=== PATIENT | male | born 1955 | race African-American/Black ===

== ENCOUNTER 2017-09-03 11:06 | Inpatient (IN) | payer OTHER ==
[2017-09-03 14:46] VITALS: BMI 24.3
--- NOTE | 2017-09-03 15:27 | HP ---
Admission [facility] Chief Complaint: I want to stop using crack . Allergies/Adverse Reactions: Allergies Allergy/AdvReac Type Severity Reaction Status Date / Time No Known Allergies Allergy Verified 09/03/17 14:55 History of Present Illness: h/o crack use daily needs help. Seeking rehab. Exam Limitations: No Limitations - Ebola screening Have you traveled outside of the country in the last 21 days: No Have you had contact with anyone from an Ebola affected area: No Have you been sick,other than usual withdrawal symptoms: No Do you have a fever: No - Review of Systems Constitutional: Malaise EENT: reports: No Symptoms Reported Respiratory: reports: No Symptoms reported Cardiac: reports: No Symptoms Reported GI: reports: No Symptoms Reported : reports: No Symptoms Reported, Other (hesitancy) Integumentary: reports: No Symptoms Reported, Dryness Neuro: reports: No Symptoms reported, Dizziness Endocrine: reports: Increased Hunger, Increased Thirst, Increased Urine Hematology: reports: No Symptoms Reported Psychiatric: reports: Orientated x3, Agitated, Anxious, Depressed Other Systems: Reviewed and Negative Patient History - Patient Medical History Hx Anemia: No Hx Asthma: No Hx Chronic Obstructive Pulmonary Disease (COPD): No Hx Cancer: No Hx Cardiac Disorders: No Hx Congestive Heart Failure: No Hx Hypertension: Yes Hx Hypercholesterolemia: No Hx Pacemaker: No HX Cerebrovascular Accident: No Hx Seizures: No Hx Dementia: No Hx Diabetes: No Hx Gastrointestinal Disorders: No Hx Liver Disease: No Hx Genitourinary Disorders: No Hx Sexually Transmitted Disorders: No Hx Renal Disease (ESRD): No Hx Thyroid Disease: No Hx Human Immunodeficiency Virus (HIV): No Hx Hepatitis C: Yes (1997) Hx Depression: Yes Hx Suicide Attempt: No Hx Bipolar Disorder: Yes Hx Schizophrenia: No - Patient Surgical History Past Surgical History: Yes Hx Neurologic Surgery: No Hx Cataract Extraction: No Hx Cardiac Surgery: No Hx Lung Surgery: No Hx Breast Surgery: No Hx Breast Biopsy: No Hx Abdominal Surgery: No Hx Appendectomy: No Hx Cholecystectomy: No Hx Genitourinary Surgery: No Hx Section: No Hx Orthopedic Surgery: No Other Surgical History: right inguinal hernia repai in 2009 Anesthesia Reaction: No - PPD History Date: 01/07/16 - Reproductive History Patient is a Female of Child Bearing Age (11 -55 yrs old): No - Smoking Cessation Smoking history: Current every day smoker Have you smoked in the past 12 months: Yes Aproximately how many cigarettes per day: 10 Hx Chewing Tobacco Use: No Initiated information on smoking cessation: Yes 'Breaking Loose' booklet given: 09/03/17 - Substance & Tx. History Hx Substance Use: Yes Substance Use Type: Cocaine Hx Substance Use Treatment: Yes - Substances Abused Oxycontin Route: Smoking Frequency: Daily Amount used: $50. Age of first use: 34 Date of Last Use: 09/03/17 Family Disease History - Family Disease History Family Disease History: Other: Son (HEALTHY), Daughter (HEALTHY) Admission Physical Exam S - Vital Signs Vital Signs: Vital Signs - 24 hr 09/03/17 14:45 Temperature 97.4 F L Pulse Rate 74 Respiratory 20 Rate Blood Pressure 151/104 - Physical General Appearance: Yes: Appropriately Dressed, Mild Distress, Anxious HEENTM: Yes: EOMI, Normal Voice, Other (upper dentures in place, no lower denture , mucosa moist) Respiratory: Yes: Chest Non-Tender, Lungs Clear, Normal Breath Sounds, No Respiratory Distress Neck: Yes: Within Normal Limits, Trachea in good position Breast: Yes: Within Normal Limits Cardiology: Yes: Regular Rhythm, Regular Rate, S1, S2 Abdominal: Yes: Non Tender, Flat, Soft, Increased Bowel Sounds, Hepatomegaly Genitourinary: Yes: Frequency, Hesitency Back: Yes: Decreased Range of Motion Musculoskeletal: Yes: Within Normal Limits, Muscle weakness Extremities: Yes: Within Normal Limits Neurological: Yes: grab operator II-XII NML intact, Fully Oriented, Alert, Motor Strength 5/5, Normal Mood/Affect Integumentary: Yes: Within Normal Limits, Dry Lymphatic: Yes: Within Normal Limits - Diagnostic (1) Cocaine dependence Current Visit: No Status: Chronic Qualifiers: Substance use status: uncomplicated Comment: REHAB (2) Opioid dependence on agonist therapy Current Visit: Yes Status: Chronic (3) Diabetes mellitus type II, controlled, with no complications Current Visit: Yes Status: Chronic Qualifiers: Comment: METFORMIN 500 MG BID (4) Hepatitis C Current Visit: Yes Status: Chronic Qualifiers: Viral hepatitis chronicity: chronic Hepatic coma status: without hepatic coma Qualified Code(s): B18.2 - Chronic viral hepatitis C Comment: ENCOURAGE SEEKING TREATMENT (5) Hypertension Current Visit: Yes Status: Chronic Qualifiers: Hypertension type: essential hypertension Qualified Code(s): I10 - Essential (primary) hypertension Comment: HYDROCHLOROTHIAZIDE (6) Nicotine dependence Current Visit: Yes Status: Chronic Qualifiers: Nicotine product type: cigarettes Substance use status: uncomplicated Qualified Code(s): F17.210 - Nicotine dependence, cigarettes, uncomplicated Comment: NICOTINE PATCH AND GUM (7) Bipolar disorder Current Visit: Yes Status: Suspected Comment: PSYCHIATRIC EVALUATION BHS Breath Alcohol Content Breath Alcohol Content: 0 Urine Drug Screen - Results Drug Screen Negative: No Urine Drug Screen Results: ELIS-Cocaine, MTD-Methadone
[2017-09-03] MEDS ORDERED: ACETAMINOPHEN 325 MG TABLET (FP) PO PRN (15:46)
[2017-09-03] MEDS ORDERED: IBUPROFEN 400 MG TABLET (FP) PO PRN (15:46)
[2017-09-03] MEDS ORDERED: MAGNESIUM CITRATE 300 ML BOTTLE PO PRN (15:46)
[2017-09-03] MEDS ORDERED: MAG HYDROX/AL HYDROX/SIMETH 30 ML UNIT-DOSE CUP PO PRN (15:46)
[2017-09-03] MEDS ORDERED: LOPERAMIDE HCL 2 MG CAPSULE PO PRN (15:46)
[2017-09-03] MEDS ORDERED: MENTHOL/PHENOL 1 EACH UD MM PRN (15:46)
[2017-09-03] MEDS ORDERED: NICOTINE POLACRILEX 4 MG GUM BC PRN (15:46)
[2017-09-03] MEDS ORDERED: MAGNESIUM HYDROX 2400MG/30ML ORAL SUSPENSION 30 ML CUP PO PRN (15:46)
[2017-09-03] MEDS ORDERED: guaiFENesin/D-METHORPHAN HB 10 ML UNIT-DOSE CUPS PO PRN (15:46)
[2017-09-03] MEDS ORDERED: P-EPHED 60MG/TRIPROLIDI 2.5MG TABLET PO PRN (15:46)
[2017-09-03] MEDS: THIAMINE HCL 100 MG TABLET (FP) PO SCH (22:00)
[2017-09-03 22:15] LABS: URINE APPEARANCE CLEAR; URINE BILIRUBIN NEGATIVE (<2.0 mg/dL); URINE COLOR LTYELLOW; URINE GLUCOSE (UA) NEGATIVE (NEGATIVE); URINE KETONE NEGATIVE (NEGATIVE); URINE LEUK ESTERASE TRACE (NEGATIVE); URINE NITRITE NEGATIVE (NEGATIVE); URINE PROTEIN NEGATIVE (NEGATIVE)
[2017-09-04] MEDS ORDERED: METHADONE HCL 10 MG TABLET PO SCH (06:30)
[2017-09-04] MEDS ORDERED: METHADONE HCL 10 MG TABLET ONE (06:40)
[2017-09-04] MEDS ORDERED: METHADONE HCL 40 MG DISPERSABLE TABLET ONE (06:41)
[2017-09-04] MEDS: METHADONE 120 MG, METHADONE 20 MG PO SCH (06:43)
--- NOTE | 2017-09-04 09:38 | HP ---
Psychiatrist Admission - Data Date of interview: 09/04/17 Admission source: [facility] Identifying data: [facility] is the [facility] admission for this 62 years old Black male, father of 3 children, unemployed on SSI, domiciled Medical History: Significant for history of hypertension, type 2 diabetes mellitus, hepatitis C and history of surgery for right inguinal hernia repair in 2009. Patient is on methadone 140 mg/day. 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 Reports that his first psychiatric contact was in 2009 when he became depressed after his brother . He saw a psychiatrist at [facility] in [place], [place] and was diagnosed with Bipolar Disorder. He still sees Dr Tineo, a staff psychiatrist at [facility] and he is prescribed Paxil 10 mg po daily, Abilify 10 mg po daily and Seroquel 50 mg po HS. Denies previous psychiatric hospitalization or suicidal attempt. At present, reports doing well but sleeping poorly.Currently denies experiencing psychotic, manic or depressive sumptoms as well as S/H ideations Physical/Sexual Abuse/Trauma History: Denies history of physical, sexual abuse as well as DV relationship Additional Comment: Reports history of multiple arrests including 4 felony convictions. Reports that he was on probation and it in 2016 Vital Signs: Vital Signs - 24 hr 09/03/17 09/04/17 09/04/17 14:45 03:30 06:52 Temperature 97.4 F L 98.6 F Pulse Rate 74 62 Respiratory 20 18 18 Rate Blood Pressure 151/104 148/100 09/04/17 07:12 Temperature Pulse Rate 61 Respiratory Rate Blood Pressure 137/71 Allergies/Adverse Reactions: Allergies Allergy/AdvReac Type Severity Reaction Status Date / Time No Known Allergies Allergy Verified 09/03/17 14:55 Date of last physical exam: 09/03/17 Concur with the findings of this exam: Yes - Substance Abuse/Tx History Hx Alcohol Use: No Hx Substance Use: Yes (Patient currently attends [facility](OTP)) Substance Use Type: Cocaine (Started smoking crack cocaine at age 34,, Consumes $60-70 worth daily. Last smoked on 09/04/15), Opiates (Started using oxycontin at age 34, consumes $50 worth daily. Last used on 09/03/17) Hx Substance Use Treatment: Yes (One previous inpt detox & one inpt rehab @ [facility] ) Mental Status Exam - Mental Status Exam Alert and Oriented to: Time, Place, Person Cognitive Function: Fair Patient Appearance: Well Groomed Mood: Hopeful, Euthymic Patient Behavior: Sedated, Cooperative Speech Pattern: Clear Voice Loudness: Normal Thought Process: Intact, Goal Oriented Hallucinations: Denies Suicidal Ideation: Denies Homicidal Ideation: Denies Insight/Judgement: Fair Sleep: Poorly Appetite: Good Muscle strength/Tone: Normal Gait/Station: Normal Psychiatric Findings - Problem List ([place] 1, 2,3) (1) Cocaine dependence Current Visit: No Status: Acute Qualifiers: Substance use status: uncomplicated Qualified Code(s): F14.20 - Cocaine dependence, uncomplicated Comment: REHAB (2) Opioid dependence on agonist therapy Current Visit: Yes Status: Chronic (3) Nicotine dependence Current Visit: Yes Status: Chronic Qualifiers: Nicotine product type: cigarettes Substance use status: uncomplicated Qualified Code(s): F17.210 - Nicotine dependence, cigarettes, uncomplicated Comment: NICOTINE PATCH AND GUM (4) Bipolar disorder Current Visit: Yes Status: Chronic Comment: PSYCHIATRIC EVALUATION (5) ADHD (attention deficit hyperactivity disorder) Current Visit: No Status: Chronic (6) Substance-induced sleep disorder Current Visit: Yes Status: Acute (7) Diabetes mellitus type II, controlled, with no complications Current Visit: Yes Status: Chronic Qualifiers: Comment: METFORMIN 500 MG BID (8) Hepatitis C Current Visit: Yes Status: Chronic Qualifiers: Viral hepatitis chronicity: chronic Hepatic coma status: without hepatic coma Qualified Code(s): B18.2 - Chronic viral hepatitis C Comment: ENCOURAGE SEEKING TREATMENT (9) Hypertension Current Visit: Yes Status: Chronic Qualifiers: Hypertension type: essential hypertension Qualified Code(s): I10 - Essential (primary) hypertension Comment: HYDROCHLOROTHIAZIDE - Initial Treatment Plan Initial Treatment Plan: 1) Continue Paxil 20 mg po HS, Abilify 10 mg po HS and Seroquel 50 mg po HS. 2) Monitor progress
[2017-09-04] MEDS: ASPIRIN COATED 81 MG TABLET.EC PO SCH (09:55)
[2017-09-04] MEDS: DOCUSATE SODIUM 100 MG CAPSULE (FP) PO SCH (09:55)
[2017-09-04] MEDS: NICOTINE 21 MG/24 HOURS TOPICAL PATCH TD SCH (09:55)
[2017-09-04] MEDS: HYDROCHLOROTHIAZIDE 25 MG TABLET (FP) PO SCH (09:55)
[2017-09-04] MEDS: PRENATAL VITAMINS W/ FOLIC ACID TABLET (FP) PO SCH (09:55)
[2017-09-04 10:23] LABS: ALBUMIN 3.5 g/dl (3.4-5.0); ANION GAP 5 (8-16); BLOOD UREA NITROGEN 16 mg/dL (7-18); CALCIUM 9.1 mg/dL (8.5-10.1); CHLORIDE 104 mmol/L (98-107); CO2 32 mmol/L (21-32); GLUCOSE,RANDOM 83 mg/dL (74-106); POTASSIUM 4.2 mmol/L (3.5-5.1); SODIUM 141 mmol/L (136-145)
[2017-09-04 10:26] LABS: ALK PHOS 56 U/L (45-117); BILIRUBIN,TOTAL 0.4 mg/dL (0.2-1.0); CREATININE 1.2 mg/dL (0.7-1.3); SGOT/AST 42 U/L (15-37); SGPT/ALT 52 U/L (12-78); TOT PROT 7.3 g/dl (6.4-8.2)
[2017-09-04 10:28] LABS: HEMATOCRIT 38.3 % (35.4-49); HEMOGLOBIN 12.8 GM/dL (11.7-16.9); MCH 28.9 pg (25.7-33.7); MCHC 33.4 g/dl (32.0-35.9); MEAN CELL VOLUME 86.5 fl (80-96); MEAN PLT VOLUME 8.9 fl (7.5-11.1); PLATELET COUNT 276 K/MM3 (134-434); RBC 4.43 M/mm3 (4.00-5.60); RDW 13.8 % (11.9-15.9); WHITE BLOOD COUNT 4.7 K/mm3 (4.0-10.0)
[2017-09-04] MEDS: ARIPiprazole 10 MG TABLET PO SCH (12:54)
[2017-09-04] MEDS: PARoxetine HCL 10 MG TABLET (FP) PO SCH (12:54)
[2017-09-04] MEDS ORDERED: TUBERCULIN PPD 5 TU/0.1ML VIAL ID ONE (14:22)
[2017-09-04] MEDS: QUEtiapine FUMARATE 50 MG TABLET PO SCH (21:26)
[2017-09-04] MEDS: THIAMINE HCL 100 MG TABLET (FP) PO SCH (21:26)
[2017-09-05] MEDS ORDERED: METHADONE HCL 10 MG TABLET ONE (04:08)
[2017-09-05] MEDS ORDERED: METHADONE HCL 40 MG DISPERSABLE TABLET ONE (04:09)
[2017-09-05] MEDS: METHADONE 120 MG, METHADONE 20 MG PO SCH (06:17)
--- NOTE | 2017-09-05 09:37 | EKG ---
Test Reason : Blood Pressure : / mmHG Vent. Rate : 056 BPM Atrial Rate : 056 BPM P-R Int : 174 ms QRS Dur : 090 ms QT Int : 444 ms P-R-T Axes : 076 077 060 degrees QTc Int : 428 ms SINUS BRADYCARDIA POSSIBLE LEFT ATRIAL ENLARGEMENT NONSPECIFIC ST ABNORMALITY ABNORMAL ECG NO PREVIOUS ECGS AVAILABLE Confirmed by LUPE STEPHENS MD ([id number]) on 09/05/2017 9:37:21 AM Referred By: Confirmed By:LUPE STEPHENS MD
[2017-09-05] MEDS: NICOTINE 21 MG/24 HOURS TOPICAL PATCH TD SCH (09:59)
[2017-09-05] MEDS: PARoxetine HCL 10 MG TABLET (FP) PO SCH (09:59)
[2017-09-05] MEDS: ARIPiprazole 10 MG TABLET PO SCH (09:59)
[2017-09-05] MEDS: ASPIRIN COATED 81 MG TABLET.EC PO SCH (09:59)
[2017-09-05] MEDS: DOCUSATE SODIUM 100 MG CAPSULE (FP) PO SCH (09:59)
[2017-09-05] MEDS: PRENATAL VITAMINS W/ FOLIC ACID TABLET (FP) PO SCH (10:00)
[2017-09-05] MEDS: HYDROCHLOROTHIAZIDE 25 MG TABLET (FP) PO SCH (10:00)
[2017-09-05] MEDS: THIAMINE HCL 100 MG TABLET (FP) PO SCH (21:17)
[2017-09-05] MEDS: QUEtiapine FUMARATE 50 MG TABLET PO SCH (21:17)
[2017-09-05] MEDS: MELATONIN 5 MG TABLETS PO PRN (21:17)
[2017-09-06] MEDS ORDERED: METHADONE HCL 40 MG DISPERSABLE TABLET ONE (03:58)
[2017-09-06] MEDS ORDERED: METHADONE HCL 10 MG TABLET ONE (03:58)
[2017-09-06] MEDS: METHADONE 120 MG, METHADONE 20 MG PO SCH (06:21)
[2017-09-06] MEDS: DOCUSATE SODIUM 100 MG CAPSULE (FP) PO SCH (09:48)
[2017-09-06] MEDS: NICOTINE 21 MG/24 HOURS TOPICAL PATCH TD SCH (09:48)
[2017-09-06] MEDS: HYDROCHLOROTHIAZIDE 25 MG TABLET (FP) PO SCH (09:48)
[2017-09-06] MEDS: ARIPiprazole 10 MG TABLET PO SCH (09:48)
[2017-09-06] MEDS: PRENATAL VITAMINS W/ FOLIC ACID TABLET (FP) PO SCH (09:48)
[2017-09-06] MEDS: PARoxetine HCL 10 MG TABLET (FP) PO SCH (09:48)
[2017-09-06] MEDS: ASPIRIN COATED 81 MG TABLET.EC PO SCH (09:48)
[2017-09-06] MEDS: THIAMINE HCL 100 MG TABLET (FP) PO SCH (21:23)
[2017-09-06] MEDS: QUEtiapine FUMARATE 50 MG TABLET PO SCH (21:23)
[2017-09-06] MEDS: MELATONIN 5 MG TABLETS PO PRN (21:23)
[2017-09-07] MEDS ORDERED: METHADONE HCL 10 MG TABLET ONE (04:09)
[2017-09-07] MEDS ORDERED: METHADONE HCL 40 MG DISPERSABLE TABLET ONE (04:10)
[2017-09-07] MEDS: METHADONE 120 MG, METHADONE 20 MG PO SCH (06:10)
[2017-09-07] MEDS: ASPIRIN COATED 81 MG TABLET.EC PO SCH (09:40)
[2017-09-07] MEDS: NICOTINE 21 MG/24 HOURS TOPICAL PATCH TD SCH (09:40)
[2017-09-07] MEDS: PRENATAL VITAMINS W/ FOLIC ACID TABLET (FP) PO SCH (09:40)
[2017-09-07] MEDS: PARoxetine HCL 10 MG TABLET (FP) PO SCH (09:40)
[2017-09-07] MEDS: HYDROCHLOROTHIAZIDE 25 MG TABLET (FP) PO SCH (09:41)
[2017-09-07] MEDS: ARIPiprazole 10 MG TABLET PO SCH (09:41)
[2017-09-07] MEDS: DOCUSATE SODIUM 100 MG CAPSULE (FP) PO SCH (09:41)
[2017-09-07] MEDS: THIAMINE HCL 100 MG TABLET (FP) PO SCH (21:10)
[2017-09-07] MEDS: MELATONIN 5 MG TABLETS PO PRN (21:10)
[2017-09-07] MEDS: QUEtiapine FUMARATE 50 MG TABLET PO SCH (21:10)
[2017-09-08] MEDS ORDERED: METHADONE HCL 40 MG DISPERSABLE TABLET ONE (03:11)
[2017-09-08] MEDS ORDERED: METHADONE HCL 10 MG TABLET ONE (03:11)
[2017-09-08] MEDS: METHADONE 120 MG, METHADONE 20 MG PO SCH (06:24)
[2017-09-08] MEDS: ARIPiprazole 10 MG TABLET PO SCH (09:31)
[2017-09-08] MEDS: NICOTINE 21 MG/24 HOURS TOPICAL PATCH TD SCH (09:31)
[2017-09-08] MEDS: ASPIRIN COATED 81 MG TABLET.EC PO SCH (09:31)
[2017-09-08] MEDS: HYDROCHLOROTHIAZIDE 25 MG TABLET (FP) PO SCH (09:31)
[2017-09-08] MEDS: PRENATAL VITAMINS W/ FOLIC ACID TABLET (FP) PO SCH (09:31)
[2017-09-08] MEDS: PARoxetine HCL 10 MG TABLET (FP) PO SCH (09:31)
[2017-09-08] MEDS: DOCUSATE SODIUM 100 MG CAPSULE (FP) PO SCH (09:32)
--- NOTE | 2017-09-08 12:53 | PN ---
[facility] Progress Note Note: Pt presents with complaint of nocturia. Denies dysuria, fever and urgency. Vital Signs Temp 98.0 F 09/08/17 07:03 Pulse 75 09/08/17 10:00 Resp 18 09/08/17 10:00 BP 157/81 09/08/17 10:00 Pulse Ox Intake & Output 09/07/17 09/08/17 09/08/17 23:59 11:59 23:59 Other: Voiding Method Toilet Toilet Laboratory Tests 09/03/17 09/03/17 09/03/17 08:35 15:33 17:30 WBC RBC Hgb Hct MCV MCH MCHC RDW Plt Count MPV Sodium 141 Potassium 4.2 Chloride 104 Carbon Dioxide 32 Anion Gap 5 L BUN 16 Creatinine 1.2 Creat Clearance w eGFR > 60 POC Glucometer 92 Random Glucose 83 Calcium 9.1 Total Bilirubin 0.4 AST 42 H ALT 52 Alkaline Phosphatase 56 Total Protein 7.3 Albumin 3.5 Urine Color Ltyellow Urine Appearance Clear Urine pH 7.0 Ur Specific [place] 1.012 Urine Protein Negative Urine Glucose (UA) Negative Urine Ketones Negative Urine Blood Negative Urine Nitrite Negative Urine Bilirubin Negative Urine Urobilinogen 2.0 Ur Leukocyte Esterase Trace Urine WBC (Auto) 1 Urine RBC (Auto) <1 RPR Titer 09/04/17 09/04/17 09/04/17 06:09 08:35 08:35 WBC 4.7 RBC 4.43 Hgb 12.8 Hct 38.3 MCV 86.5 MCH 28.9 MCHC 33.4 RDW 13.8 Plt Count 276 MPV 8.9 Sodium Potassium Chloride Carbon Dioxide Anion Gap BUN Creatinine Creat Clearance w eGFR POC Glucometer 100 Random Glucose Calcium Total Bilirubin AST ALT Alkaline Phosphatase Total Protein Albumin Urine Color Urine Appearance Urine pH Ur Specific [place] Urine Protein Urine Glucose (UA) Urine Ketones Urine Blood Urine Nitrite Urine Bilirubin Urine Urobilinogen Ur Leukocyte Esterase Urine WBC (Auto) Urine RBC (Auto) RPR Titer Nonreactive 09/04/17 09/05/17 09/05/17 17:02 06:16 16:52 WBC RBC Hgb Hct MCV MCH MCHC RDW Plt Count MPV Sodium Potassium Chloride Carbon Dioxide Anion Gap BUN Creatinine Creat Clearance w eGFR POC Glucometer 83 105 92 Random Glucose Calcium Total Bilirubin AST ALT Alkaline Phosphatase Total Protein Albumin Urine Color Urine Appearance Urine pH Ur Specific [place] Urine Protein Urine Glucose (UA) Urine Ketones Urine Blood Urine Nitrite Urine Bilirubin Urine Urobilinogen Ur Leukocyte Esterase Urine WBC (Auto) Urine RBC (Auto) RPR Titer 09/06/17 09/06/17 06:21 16:51 WBC RBC Hgb Hct MCV MCH MCHC RDW Plt Count MPV Sodium Potassium Chloride Carbon Dioxide Anion Gap BUN Creatinine Creat Clearance w eGFR POC Glucometer 100 103 Random Glucose Calcium Total Bilirubin AST ALT Alkaline Phosphatase Total Protein Albumin Urine Color Urine Appearance Urine pH Ur Specific [place] Urine Protein Urine Glucose (UA) Urine Ketones Urine Blood Urine Nitrite Urine Bilirubin Urine Urobilinogen Ur Leukocyte Esterase Urine WBC (Auto) Urine RBC (Auto) RPR Titer OBJ: General: Alert and oriented x 3. Afebrile. Skin: Warm and dry. : no CVAT, no pelvic tenderness A/P: BPH Pt has bottle of Flomax in properties confirmed by nursing staff. Pt does not have symptoms of infection. Will order flomax 0.4mg hs and continue to monitor clinically.
[2017-09-08] MEDS: MELATONIN 5 MG TABLETS PO PRN (21:17)
[2017-09-08] MEDS: THIAMINE HCL 100 MG TABLET (FP) PO SCH (21:17)
[2017-09-08] MEDS: QUEtiapine FUMARATE 50 MG TABLET PO SCH (21:17)
[2017-09-09] MEDS ORDERED: METHADONE HCL 40 MG DISPERSABLE TABLET ONE (05:06)
[2017-09-09] MEDS ORDERED: METHADONE HCL 10 MG TABLET ONE (05:06)
[2017-09-09] MEDS: METHADONE 120 MG, METHADONE 20 MG PO SCH (06:26)
[2017-09-09] MEDS: TAMSULOSIN HCL 0.4 MG CAP.ER.24H (FP) PO SCH (09:30)
[2017-09-09] MEDS: ASPIRIN COATED 81 MG TABLET.EC PO SCH (10:16)
[2017-09-09] MEDS: NICOTINE 21 MG/24 HOURS TOPICAL PATCH TD SCH (10:16)
[2017-09-09] MEDS: HYDROCHLOROTHIAZIDE 25 MG TABLET (FP) PO SCH (10:16)
[2017-09-09] MEDS: ARIPiprazole 10 MG TABLET PO SCH (10:16)
[2017-09-09] MEDS: PRENATAL VITAMINS W/ FOLIC ACID TABLET (FP) PO SCH (10:16)
[2017-09-09] MEDS: PARoxetine HCL 10 MG TABLET (FP) PO SCH (10:16)
[2017-09-09] MEDS: DOCUSATE SODIUM 100 MG CAPSULE (FP) PO SCH (10:16)
[2017-09-09] MEDS: QUEtiapine FUMARATE 50 MG TABLET PO SCH (21:21)
[2017-09-09] MEDS: THIAMINE HCL 100 MG TABLET (FP) PO SCH (22:12)
[2017-09-10] MEDS ORDERED: METHADONE HCL 10 MG TABLET ONE (04:11)
[2017-09-10] MEDS ORDERED: METHADONE HCL 40 MG DISPERSABLE TABLET ONE (04:11)
[2017-09-10] MEDS: METHADONE 120 MG, METHADONE 20 MG PO SCH (06:21)
[2017-09-10] MEDS: TAMSULOSIN HCL 0.4 MG CAP.ER.24H (FP) PO SCH (08:57)
[2017-09-10] MEDS: DOCUSATE SODIUM 100 MG CAPSULE (FP) PO SCH (09:57)
[2017-09-10] MEDS: PARoxetine HCL 10 MG TABLET (FP) PO SCH (09:57)
[2017-09-10] MEDS: ASPIRIN COATED 81 MG TABLET.EC PO SCH (09:57)
[2017-09-10] MEDS: ARIPiprazole 10 MG TABLET PO SCH (09:58)
[2017-09-10] MEDS: PRENATAL VITAMINS W/ FOLIC ACID TABLET (FP) PO SCH (09:58)
[2017-09-10] MEDS: NICOTINE 21 MG/24 HOURS TOPICAL PATCH TD SCH (10:01)
[2017-09-10] MEDS: HYDROCHLOROTHIAZIDE 25 MG TABLET (FP) PO SCH (10:55)
[2017-09-10] MEDS: QUEtiapine FUMARATE 50 MG TABLET PO SCH (21:17)
[2017-09-10] MEDS: MELATONIN 5 MG TABLETS PO PRN (21:17)
[2017-09-10] MEDS: THIAMINE HCL 100 MG TABLET (FP) PO SCH (21:17)
[2017-09-11] MEDS: TAMSULOSIN HCL 0.4 MG CAP.ER.24H (FP) PO SCH (08:34)
[2017-09-11] MEDS ORDERED: METHADONE HCL 10 MG TABLET ONE (08:41)
[2017-09-11] MEDS ORDERED: METHADONE HCL 40 MG DISPERSABLE TABLET ONE (08:42)
[2017-09-11] MEDS ORDERED: METHADONE 120 MG, METHADONE 20 MG PO SCH (09:00)
[2017-09-11] MEDS: PARoxetine HCL 10 MG TABLET (FP) PO SCH (09:34)
[2017-09-11] MEDS: DOCUSATE SODIUM 100 MG CAPSULE (FP) PO SCH (09:34)
[2017-09-11] MEDS: PRENATAL VITAMINS W/ FOLIC ACID TABLET (FP) PO SCH (09:35)
[2017-09-11] MEDS: ASPIRIN COATED 81 MG TABLET.EC PO SCH (09:35)
[2017-09-11] MEDS: ARIPiprazole 10 MG TABLET PO SCH (09:35)
[2017-09-11] MEDS: HYDROCHLOROTHIAZIDE 25 MG TABLET (FP) PO SCH (09:35)
[2017-09-11] MEDS: NICOTINE 21 MG/24 HOURS TOPICAL PATCH TD SCH (09:35)
[2017-09-11] MEDS: THIAMINE HCL 100 MG TABLET (FP) PO SCH (21:30)
[2017-09-11] MEDS: QUEtiapine FUMARATE 50 MG TABLET PO SCH (21:30)
[2017-09-12] MEDS ORDERED: METHADONE 120 MG, METHADONE 20 MG PO SCH (06:45)
[2017-09-12] MEDS ORDERED: METHADONE HCL 40 MG DISPERSABLE TABLET ONE (07:16)
[2017-09-12] MEDS ORDERED: METHADONE HCL 10 MG TABLET ONE (07:16)
[2017-09-12] MEDS: METHADONE 120 MG, METHADONE 20 MG PO SCH (07:19)
[2017-09-12] MEDS: TAMSULOSIN HCL 0.4 MG CAP.ER.24H (FP) PO SCH (08:55)
[2017-09-12] MEDS: ARIPiprazole 10 MG TABLET PO SCH (09:55)
[2017-09-12] MEDS: NICOTINE 21 MG/24 HOURS TOPICAL PATCH TD SCH (09:55)
[2017-09-12] MEDS: HYDROCHLOROTHIAZIDE 25 MG TABLET (FP) PO SCH (09:56)
[2017-09-12] MEDS: DOCUSATE SODIUM 100 MG CAPSULE (FP) PO SCH (09:56)
[2017-09-12] MEDS: ASPIRIN COATED 81 MG TABLET.EC PO SCH (09:56)
[2017-09-12] MEDS: PARoxetine HCL 10 MG TABLET (FP) PO SCH (09:56)
[2017-09-12] MEDS: PRENATAL VITAMINS W/ FOLIC ACID TABLET (FP) PO SCH (09:56)
[2017-09-12] MEDS: THIAMINE HCL 100 MG TABLET (FP) PO SCH (21:21)
[2017-09-12] MEDS: QUEtiapine FUMARATE 50 MG TABLET PO SCH (21:21)
[2017-09-13] MEDS ORDERED: METHADONE HCL 10 MG TABLET ONE (03:16)
[2017-09-13] MEDS ORDERED: METHADONE HCL 40 MG DISPERSABLE TABLET ONE (03:17)
[2017-09-13] MEDS: METHADONE 120 MG, METHADONE 20 MG PO SCH (06:14)
[2017-09-13] MEDS: TAMSULOSIN HCL 0.4 MG CAP.ER.24H (FP) PO SCH (07:57)
[2017-09-13] MEDS: ASPIRIN COATED 81 MG TABLET.EC PO SCH (09:24)
[2017-09-13] MEDS: HYDROCHLOROTHIAZIDE 25 MG TABLET (FP) PO SCH (09:24)
[2017-09-13] MEDS: NICOTINE 21 MG/24 HOURS TOPICAL PATCH TD SCH (09:24)
[2017-09-13] MEDS: PARoxetine HCL 10 MG TABLET (FP) PO SCH (09:24)
[2017-09-13] MEDS: PRENATAL VITAMINS W/ FOLIC ACID TABLET (FP) PO SCH (09:24)
[2017-09-13] MEDS: ARIPiprazole 10 MG TABLET PO SCH (09:24)
[2017-09-13] MEDS: DOCUSATE SODIUM 100 MG CAPSULE (FP) PO SCH (09:24)
[2017-09-13] MEDS: LIDOCAINE 5% TOPICAL PATCH TP SCH (12:28)
[2017-09-13] MEDS: LIDOCAINE PATCH REMOVAL MC SCH (21:26)
[2017-09-13] MEDS: QUEtiapine FUMARATE 50 MG TABLET PO SCH (21:26)
[2017-09-13] MEDS: THIAMINE HCL 100 MG TABLET (FP) PO SCH (21:26)
[2017-09-14] MEDS ORDERED: METHADONE HCL 10 MG TABLET ONE (03:18)
[2017-09-14] MEDS ORDERED: METHADONE HCL 40 MG DISPERSABLE TABLET ONE (03:19)
[2017-09-14] MEDS: METHADONE 120 MG, METHADONE 20 MG PO SCH (06:32)
[2017-09-14] MEDS: TAMSULOSIN HCL 0.4 MG CAP.ER.24H (FP) PO SCH (07:46)
[2017-09-14] MEDS: PARoxetine HCL 10 MG TABLET (FP) PO SCH (10:02)
[2017-09-14] MEDS: NICOTINE 21 MG/24 HOURS TOPICAL PATCH TD SCH (10:02)
[2017-09-14] MEDS: ASPIRIN COATED 81 MG TABLET.EC PO SCH (10:02)
[2017-09-14] MEDS: ARIPiprazole 10 MG TABLET PO SCH (10:02)
[2017-09-14] MEDS: PRENATAL VITAMINS W/ FOLIC ACID TABLET (FP) PO SCH (10:02)
[2017-09-14] MEDS: LIDOCAINE 5% TOPICAL PATCH TP SCH (10:02)
[2017-09-14] MEDS: DOCUSATE SODIUM 100 MG CAPSULE (FP) PO SCH (10:02)
[2017-09-14] MEDS: HYDROCHLOROTHIAZIDE 25 MG TABLET (FP) PO SCH (10:02)
[2017-09-14] MEDS: LIDOCAINE PATCH REMOVAL MC SCH (21:59)
[2017-09-14] MEDS: QUEtiapine FUMARATE 50 MG TABLET PO SCH (21:59)
[2017-09-14] MEDS: THIAMINE HCL 100 MG TABLET (FP) PO SCH (21:59)
[2017-09-15] MEDS ORDERED: METHADONE HCL 10 MG TABLET ONE (04:15)
[2017-09-15] MEDS ORDERED: METHADONE HCL 40 MG DISPERSABLE TABLET ONE (04:16)
[2017-09-15] MEDS: METHADONE 120 MG, METHADONE 20 MG PO SCH (06:11)
[2017-09-15] MEDS: TAMSULOSIN HCL 0.4 MG CAP.ER.24H (FP) PO SCH (08:55)
[2017-09-15] MEDS: PRENATAL VITAMINS W/ FOLIC ACID TABLET (FP) PO SCH (09:54)
[2017-09-15] MEDS: DOCUSATE SODIUM 100 MG CAPSULE (FP) PO SCH (09:54)
[2017-09-15] MEDS: ASPIRIN COATED 81 MG TABLET.EC PO SCH (09:54)
[2017-09-15] MEDS: ARIPiprazole 10 MG TABLET PO SCH (09:55)
[2017-09-15] MEDS: PARoxetine HCL 10 MG TABLET (FP) PO SCH (09:55)
[2017-09-15] MEDS: HYDROCHLOROTHIAZIDE 25 MG TABLET (FP) PO SCH (09:55)
[2017-09-15] MEDS: NICOTINE 21 MG/24 HOURS TOPICAL PATCH TD SCH (09:55)
[2017-09-15] MEDS: LIDOCAINE 5% TOPICAL PATCH TP SCH (09:55)
[2017-09-15] MEDS: QUEtiapine FUMARATE 50 MG TABLET PO SCH (21:21)
[2017-09-15] MEDS: LIDOCAINE PATCH REMOVAL MC SCH (21:21)
[2017-09-15] MEDS: THIAMINE HCL 100 MG TABLET (FP) PO SCH (21:21)
[2017-09-16] MEDS ORDERED: METHADONE HCL 40 MG DISPERSABLE TABLET ONE (04:09)
[2017-09-16] MEDS ORDERED: METHADONE HCL 10 MG TABLET ONE (04:09)
[2017-09-16] MEDS: METHADONE 120 MG, METHADONE 20 MG PO SCH (06:24)
[2017-09-16] MEDS: TAMSULOSIN HCL 0.4 MG CAP.ER.24H (FP) PO SCH (09:30)
[2017-09-16] MEDS: PRENATAL VITAMINS W/ FOLIC ACID TABLET (FP) PO SCH (09:46)
[2017-09-16] MEDS: PARoxetine HCL 10 MG TABLET (FP) PO SCH (09:48)
[2017-09-16] MEDS: NICOTINE 21 MG/24 HOURS TOPICAL PATCH TD SCH (09:48)
[2017-09-16] MEDS: ARIPiprazole 10 MG TABLET PO SCH (09:48)
[2017-09-16] MEDS: ASPIRIN COATED 81 MG TABLET.EC PO SCH (09:48)
[2017-09-16] MEDS: HYDROCHLOROTHIAZIDE 25 MG TABLET (FP) PO SCH (09:48)
[2017-09-16] MEDS: LIDOCAINE 5% TOPICAL PATCH TP SCH (09:49)
[2017-09-16] MEDS: DOCUSATE SODIUM 100 MG CAPSULE (FP) PO SCH (09:49)
[2017-09-16] MEDS: QUEtiapine FUMARATE 50 MG TABLET PO SCH (21:23)
[2017-09-16] MEDS: THIAMINE HCL 100 MG TABLET (FP) PO SCH (21:23)
[2017-09-16] MEDS: LIDOCAINE PATCH REMOVAL MC SCH (21:23)
[2017-09-17] MEDS ORDERED: METHADONE HCL 10 MG TABLET ONE (04:59)
[2017-09-17] MEDS ORDERED: METHADONE HCL 40 MG DISPERSABLE TABLET ONE (05:00)
[2017-09-17] MEDS: METHADONE 120 MG, METHADONE 20 MG PO SCH (05:57)
[2017-09-17] MEDS: TAMSULOSIN HCL 0.4 MG CAP.ER.24H (FP) PO SCH (08:35)
[2017-09-17] MEDS: ASPIRIN COATED 81 MG TABLET.EC PO SCH (10:34)
[2017-09-17] MEDS: PRENATAL VITAMINS W/ FOLIC ACID TABLET (FP) PO SCH (10:34)
[2017-09-17] MEDS: HYDROCHLOROTHIAZIDE 25 MG TABLET (FP) PO SCH (10:34)
[2017-09-17] MEDS: DOCUSATE SODIUM 100 MG CAPSULE (FP) PO SCH (10:35)
[2017-09-17] MEDS: NICOTINE 21 MG/24 HOURS TOPICAL PATCH TD SCH (10:35)
[2017-09-17] MEDS: PARoxetine HCL 10 MG TABLET (FP) PO SCH (10:35)
[2017-09-17] MEDS: ARIPiprazole 10 MG TABLET PO SCH (10:35)
[2017-09-17] MEDS: LIDOCAINE 5% TOPICAL PATCH TP SCH (10:35)
[2017-09-17] MEDS: THIAMINE HCL 100 MG TABLET (FP) PO SCH (21:21)
[2017-09-17] MEDS: QUEtiapine FUMARATE 50 MG TABLET PO SCH (21:21)
[2017-09-17] MEDS: LIDOCAINE PATCH REMOVAL MC SCH (22:09)
[2017-09-18] MEDS ORDERED: METHADONE HCL 10 MG TABLET ONE (03:25)
[2017-09-18] MEDS ORDERED: METHADONE HCL 40 MG DISPERSABLE TABLET ONE (03:25)
[2017-09-18] MEDS: METHADONE 120 MG, METHADONE 20 MG PO SCH (06:22)
[2017-09-18] MEDS: TAMSULOSIN HCL 0.4 MG CAP.ER.24H (FP) PO SCH (07:31)
[2017-09-18] MEDS: ARIPiprazole 10 MG TABLET PO SCH (09:41)
[2017-09-18] MEDS: HYDROCHLOROTHIAZIDE 25 MG TABLET (FP) PO SCH (09:41)
[2017-09-18] MEDS: DOCUSATE SODIUM 100 MG CAPSULE (FP) PO SCH (09:41)
[2017-09-18] MEDS: LIDOCAINE 5% TOPICAL PATCH TP SCH (09:41)
[2017-09-18] MEDS: ASPIRIN COATED 81 MG TABLET.EC PO SCH (09:41)
[2017-09-18] MEDS: PRENATAL VITAMINS W/ FOLIC ACID TABLET (FP) PO SCH (09:41)
[2017-09-18] MEDS: PARoxetine HCL 10 MG TABLET (FP) PO SCH (09:41)
[2017-09-18] MEDS: NICOTINE 21 MG/24 HOURS TOPICAL PATCH TD SCH (09:42)
[2017-09-18] MEDS: LIDOCAINE PATCH REMOVAL MC SCH (21:16)
[2017-09-18] MEDS: QUEtiapine FUMARATE 50 MG TABLET PO SCH (21:16)
[2017-09-18] MEDS: THIAMINE HCL 100 MG TABLET (FP) PO SCH (21:16)
[2017-09-19] MEDS ORDERED: METHADONE HCL 10 MG TABLET ONE (05:46)
[2017-09-19] MEDS ORDERED: METHADONE HCL 40 MG DISPERSABLE TABLET ONE (05:47)
[2017-09-19] MEDS: METHADONE 120 MG, METHADONE 20 MG PO SCH (06:29)
[2017-09-19] MEDS: TAMSULOSIN HCL 0.4 MG CAP.ER.24H (FP) PO SCH (07:49)
[2017-09-19] MEDS: ARIPiprazole 10 MG TABLET PO SCH (09:47)
[2017-09-19] MEDS: PRENATAL VITAMINS W/ FOLIC ACID TABLET (FP) PO SCH (09:47)
[2017-09-19] MEDS: ASPIRIN COATED 81 MG TABLET.EC PO SCH (09:47)
[2017-09-19] MEDS: NICOTINE 21 MG/24 HOURS TOPICAL PATCH TD SCH (09:47)
[2017-09-19] MEDS: PARoxetine HCL 10 MG TABLET (FP) PO SCH (09:47)
[2017-09-19] MEDS: DOCUSATE SODIUM 100 MG CAPSULE (FP) PO SCH (09:47)
[2017-09-19] MEDS: HYDROCHLOROTHIAZIDE 25 MG TABLET (FP) PO SCH (09:47)
[2017-09-19] MEDS: THIAMINE HCL 100 MG TABLET (FP) PO SCH (21:20)
[2017-09-19] MEDS: QUEtiapine FUMARATE 50 MG TABLET PO SCH (21:20)
[2017-09-19] MEDS: LIDOCAINE PATCH REMOVAL MC SCH (21:22)
[2017-09-20] MEDS ORDERED: METHADONE HCL 40 MG DISPERSABLE TABLET ONE (04:26)
[2017-09-20] MEDS ORDERED: METHADONE HCL 10 MG TABLET ONE (04:26)
[2017-09-20] MEDS: METHADONE 120 MG, METHADONE 20 MG PO SCH (06:27)
[2017-09-20] MEDS: TAMSULOSIN HCL 0.4 MG CAP.ER.24H (FP) PO SCH (08:50)
[2017-09-20] MEDS: NICOTINE 21 MG/24 HOURS TOPICAL PATCH TD SCH (09:50)
[2017-09-20] MEDS: PRENATAL VITAMINS W/ FOLIC ACID TABLET (FP) PO SCH (09:50)
[2017-09-20] MEDS: ASPIRIN COATED 81 MG TABLET.EC PO SCH (09:50)
[2017-09-20] MEDS: ARIPiprazole 10 MG TABLET PO SCH (09:50)
[2017-09-20] MEDS: PARoxetine HCL 10 MG TABLET (FP) PO SCH (09:50)
[2017-09-20] MEDS: DOCUSATE SODIUM 100 MG CAPSULE (FP) PO SCH (09:50)
[2017-09-20] MEDS: HYDROCHLOROTHIAZIDE 25 MG TABLET (FP) PO SCH (09:50)
[2017-09-20] MEDS: QUEtiapine FUMARATE 50 MG TABLET PO SCH (21:21)
[2017-09-20] MEDS: THIAMINE HCL 100 MG TABLET (FP) PO SCH (21:21)
[2017-09-21] MEDS ORDERED: METHADONE HCL 10 MG TABLET ONE (03:03)
[2017-09-21] MEDS ORDERED: METHADONE HCL 40 MG DISPERSABLE TABLET ONE (03:03)
[2017-09-21] MEDS: METHADONE 120 MG, METHADONE 20 MG PO SCH (06:08)
[2017-09-21] MEDS: TAMSULOSIN HCL 0.4 MG CAP.ER.24H (FP) PO SCH (08:46)
[2017-09-21] MEDS: NICOTINE 21 MG/24 HOURS TOPICAL PATCH TD SCH (09:46)
[2017-09-21] MEDS: ARIPiprazole 10 MG TABLET PO SCH (09:46)
[2017-09-21] MEDS: HYDROCHLOROTHIAZIDE 25 MG TABLET (FP) PO SCH (09:46)
[2017-09-21] MEDS: ASPIRIN COATED 81 MG TABLET.EC PO SCH (09:46)
[2017-09-21] MEDS: DOCUSATE SODIUM 100 MG CAPSULE (FP) PO SCH (09:46)
[2017-09-21] MEDS: PARoxetine HCL 10 MG TABLET (FP) PO SCH (09:47)
[2017-09-21] MEDS: PRENATAL VITAMINS W/ FOLIC ACID TABLET (FP) PO SCH (09:47)
[2017-09-21] MEDS: QUEtiapine FUMARATE 50 MG TABLET PO SCH (21:12)
[2017-09-21] MEDS: THIAMINE HCL 100 MG TABLET (FP) PO SCH (21:12)
[2017-09-22] MEDS ORDERED: METHADONE HCL 10 MG TABLET ONE (03:15)
[2017-09-22] MEDS ORDERED: METHADONE HCL 40 MG DISPERSABLE TABLET ONE (03:16)
[2017-09-22] MEDS: METHADONE 120 MG, METHADONE 20 MG PO SCH (06:08)
[2017-09-22] MEDS: TAMSULOSIN HCL 0.4 MG CAP.ER.24H (FP) PO SCH (07:32)
[2017-09-22] MEDS: HYDROCHLOROTHIAZIDE 25 MG TABLET (FP) PO SCH (09:43)
[2017-09-22] MEDS: PRENATAL VITAMINS W/ FOLIC ACID TABLET (FP) PO SCH (09:43)
[2017-09-22] MEDS: NICOTINE 21 MG/24 HOURS TOPICAL PATCH TD SCH (09:43)
[2017-09-22] MEDS: ARIPiprazole 10 MG TABLET PO SCH (09:43)
[2017-09-22] MEDS: PARoxetine HCL 10 MG TABLET (FP) PO SCH (09:43)
[2017-09-22] MEDS: ASPIRIN COATED 81 MG TABLET.EC PO SCH (09:44)
[2017-09-22] MEDS: DOCUSATE SODIUM 100 MG CAPSULE (FP) PO SCH (09:44)
--- NOTE | 2017-09-22 15:08 | PN ---
Psychiatric Progress Note Vital Signs: Vital Signs Period Temp Pulse Resp BP Sys/[place] Pulse Ox Last 24 Hr 97.9 F 54-73 - 140-143/74-76 Date of Session: 09/22/17 Chief Complaint:: " I'm not feeling well" HPI: Patient addressing Cocaine Dependence comorbid with Opioid Dependence on Agonist Therapy, Nicotine Dependence, Bipolar Disorder, ADHD and Substance- Induced Sleep Disorder ROS: Type 2 DM, HTN, Hep C Current Medications: Active Medications Generic Name Dose Route Start Last Admin Trade Name Freq PRN Reason Stop Dose Admin Acetaminophen 650 mg 09/03/17 15:46 Tylenol - PO Q4H PRN FEVER Al Hydroxide/Mg Hydroxide 30 ml 09/03/17 15:46 Mylanta Oral Suspension - PO Q6H PRN DYSPEPSIA Aripiprazole 10 mg 09/04/17 11:15 09/22/17 09:43 Abilify PO 10 mg DAILY LEX Administration Aspirin 81 mg 09/04/17 10:00 09/22/17 09:44 Ecotrin - PO 81 mg DAILY LEX Administration Docusate Sodium 100 mg 09/04/17 10:00 09/22/17 09:44 Colace - PO 100 mg DAILY LEX Administration Eucalyptus/Menthol/Phenol/Sorbitol 1 each 09/03/17 15:46 Cepastat Lozenge - MM Q4H PRN SORE THROAT Guaifenesin 10 ml 09/03/17 15:46 Robitussin Dm - PO Q6H PRN COUGH Hydrochlorothiazide 25 mg 09/04/17 10:00 09/22/17 09:43 Hctz - PO 25 mg DAILY LEX Administration Ibuprofen 400 mg 09/03/17 15:46 09/05/17 06:18 Motrin - PO 400 mg Q6H PRN Administration Pain level 4-6 Loperamide HCl 4 mg 09/03/17 15:46 Imodium - PO Q6H PRN DIARRHEA Magnesium Citrate 300 ml 09/03/17 15:46 Citroma - PO Q48H PRN CONSTIPATION Magnesium Hydroxide 30 ml 09/03/17 15:46 Milk Of Magnesia - PO DAILY PRN CONSTIPATION Melatonin 5 mg 09/03/17 22:00 09/10/17 21:17 Melatonin PO 5 mg HS PRN Administration INSOMNIA Metformin HCl 500 mg 09/03/17 16:30 09/22/17 07:32 Glucophage Xr - PO 500 mg BIDAC LEX Administration Methadone HCl 120 mg/ 140 mg 09/19/17 06:00 09/22/17 06:08 Methadone HCl 20 mg PO 09/26/17 05:59 140 mg DAILY@0600 LEX Administration Nicotine 21 mg 09/04/17 10:00 09/22/17 09:43 Nicoderm Patch - TD 21 mg DAILY LEX Administration Nicotine Polacrilex 4 mg 09/03/17 15:46 Nicorette Gum - BC Q2H PRN NICOTINE REPLACEMENT RX Paroxetine HCl 20 mg 09/23/17 10:00 Paxil - PO DAILY LEX Multivit/Folic Acid/Iron 1 tab 09/04/17 10:00 09/22/17 09:43 Vitamins (Sjr) - PO 1 tab DAILY LEX Administration Pseudoephedrine/Triprolidine 1 combo 09/03/17 15:46 Actifed - PO TID PRN NASAL CONGESTION Quetiapine Fumarate 50 mg 09/04/17 22:00 09/21/17 21:12 Seroquel - PO 50 mg HS LEX Administration Tamsulosin HCl 0.4 mg 09/09/17 08:30 09/22/17 07:32 Flomax - PO 0.4 mg DAILY@0830 LEX Administration Thiamine HCl 100 mg 09/03/17 22:00 09/21/17 21:12 Vitamin B1 - PO 100 mg HS LEX Administration Current Side Effect: No Lab tests ordered: Yes Lab tests reviewed: Yes Provider note:: Patient seen at the request of his counselor. He is a poor historian. Told contract writer that he is not feeling well. He was asked what do you mean by not feeling well? He was like"I don't know, just feel stressed, anxiety. " He was asked if he was feeling depressed. He responded:"yes, I feel depressed " He acknowledged lack of energy and motivation. However he denies feeling hopeless helpless, suicidal, homicidal. He is currently on Paxil 10 mg po daily , Abilify 10 mg po Hs and Seroquel 50 mg po HS. Discussed with patient about increasing Paxil dosage to 20 mg po daily and he agreed with that plan Total face to face time:: 25 Mental Status Exam - Mental Status Exam Alert and Oriented to: Time, Place, Person Cognitive Function: Fair Patient Appearance: Well Groomed Mood: Depressed Affect: Appropriate Patient Behavior: Passive, Cooperative Speech Pattern: Clear Voice Loudness: Normal Thought Process: Intact, Goal Oriented Thought Disorder: Not Present Hallucinations: Denies Suicidal Ideation: Denies Homicidal Ideation: Denies Insight/Judgement: Fair Sleep: Well Appetite: Good Muscle strength/Tone: Normal Gait/Station: Normal Psychiatric Treatment Plan - Problem List (1) Cocaine dependence Current Visit: No Qualifiers: Substance use status: uncomplicated Qualified Code(s): F14.20 - Cocaine dependence, uncomplicated Comment: REHAB (2) Opioid dependence on agonist therapy Current Visit: Yes (3) Nicotine dependence Current Visit: Yes Qualifiers: Nicotine product type: cigarettes Substance use status: uncomplicated Qualified Code(s): F17.210 - Nicotine dependence, cigarettes, uncomplicated Comment: NICOTINE PATCH AND GUM (4) Bipolar disorder Current Visit: Yes Comment: PSYCHIATRIC EVALUATION (5) ADHD (attention deficit hyperactivity disorder) Current Visit: No (6) Substance-induced sleep disorder Current Visit: Yes (7) Diabetes mellitus type II, controlled, with no complications Current Visit: Yes Qualifiers: Comment: METFORMIN 500 MG BID (8) Hepatitis C Current Visit: Yes Qualifiers: Viral hepatitis chronicity: chronic Hepatic coma status: without hepatic coma Qualified Code(s): B18.2 - Chronic viral hepatitis C Comment: ENCOURAGE SEEKING TREATMENT (9) Hypertension Current Visit: Yes Qualifiers: Hypertension type: essential hypertension Qualified Code(s): I10 - Essential (primary) hypertension Comment: HYDROCHLOROTHIAZIDE Initial treatment plan: 1) Discontinue Paxil as currently ordered. 2) Start Paxil 20 mg po daily. 3) Continue Abilify and Seroquel as currently ordered. 4 ) Monitor progress
[2017-09-22] MEDS: QUEtiapine FUMARATE 50 MG TABLET PO SCH (21:16)
[2017-09-22] MEDS: THIAMINE HCL 100 MG TABLET (FP) PO SCH (21:16)
[2017-09-23] MEDS ORDERED: METHADONE HCL 10 MG TABLET ONE (04:09)
[2017-09-23] MEDS ORDERED: METHADONE HCL 40 MG DISPERSABLE TABLET ONE (04:09)
[2017-09-23] MEDS: METHADONE 120 MG, METHADONE 20 MG PO SCH (06:13)
[2017-09-23] MEDS: TAMSULOSIN HCL 0.4 MG CAP.ER.24H (FP) PO SCH (08:51)
[2017-09-23] MEDS: ASPIRIN COATED 81 MG TABLET.EC PO SCH (09:51)
[2017-09-23] MEDS: PARoxetine HCL 20 MG TABLET (FP) PO SCH (09:51)
[2017-09-23] MEDS: NICOTINE 21 MG/24 HOURS TOPICAL PATCH TD SCH (09:51)
[2017-09-23] MEDS: PRENATAL VITAMINS W/ FOLIC ACID TABLET (FP) PO SCH (09:51)
[2017-09-23] MEDS: DOCUSATE SODIUM 100 MG CAPSULE (FP) PO SCH (09:51)
[2017-09-23] MEDS: HYDROCHLOROTHIAZIDE 25 MG TABLET (FP) PO SCH (09:51)
[2017-09-23] MEDS: ARIPiprazole 10 MG TABLET PO SCH (09:51)
[2017-09-23] MEDS: QUEtiapine FUMARATE 50 MG TABLET PO SCH (21:19)
[2017-09-23] MEDS: THIAMINE HCL 100 MG TABLET (FP) PO SCH (21:19)
[2017-09-24] MEDS ORDERED: METHADONE HCL 10 MG TABLET ONE (02:49)
[2017-09-24] MEDS ORDERED: METHADONE HCL 40 MG DISPERSABLE TABLET ONE (02:50)
[2017-09-24] MEDS: METHADONE 120 MG, METHADONE 20 MG PO SCH (06:13)
[2017-09-24] MEDS: TAMSULOSIN HCL 0.4 MG CAP.ER.24H (FP) PO SCH (08:56)
[2017-09-24] MEDS: HYDROCHLOROTHIAZIDE 25 MG TABLET (FP) PO SCH (09:55)
[2017-09-24] MEDS: DOCUSATE SODIUM 100 MG CAPSULE (FP) PO SCH (09:56)
[2017-09-24] MEDS: NICOTINE 21 MG/24 HOURS TOPICAL PATCH TD SCH (09:56)
[2017-09-24] MEDS: ARIPiprazole 10 MG TABLET PO SCH (09:56)
[2017-09-24] MEDS: ASPIRIN COATED 81 MG TABLET.EC PO SCH (09:56)
[2017-09-24] MEDS: PRENATAL VITAMINS W/ FOLIC ACID TABLET (FP) PO SCH (09:56)
[2017-09-24] MEDS: PARoxetine HCL 20 MG TABLET (FP) PO SCH (09:56)
[2017-09-24] MEDS: QUEtiapine FUMARATE 50 MG TABLET PO SCH (21:18)
[2017-09-24] MEDS: THIAMINE HCL 100 MG TABLET (FP) PO SCH (21:18)
[2017-09-25] MEDS ORDERED: METHADONE HCL 10 MG TABLET ONE (05:32)
[2017-09-25] MEDS ORDERED: METHADONE HCL 40 MG DISPERSABLE TABLET ONE (05:33)
[2017-09-25] MEDS: METHADONE 120 MG, METHADONE 20 MG PO SCH (06:32)
[2017-09-25] MEDS: TAMSULOSIN HCL 0.4 MG CAP.ER.24H (FP) PO SCH (08:35)
[2017-09-25] MEDS: HYDROCHLOROTHIAZIDE 25 MG TABLET (FP) PO SCH (10:01)
[2017-09-25] MEDS: ASPIRIN COATED 81 MG TABLET.EC PO SCH (10:02)
[2017-09-25] MEDS: PARoxetine HCL 20 MG TABLET (FP) PO SCH (10:02)
[2017-09-25] MEDS: DOCUSATE SODIUM 100 MG CAPSULE (FP) PO SCH (10:02)
[2017-09-25] MEDS: ARIPiprazole 10 MG TABLET PO SCH (10:02)
[2017-09-25] MEDS: NICOTINE 21 MG/24 HOURS TOPICAL PATCH TD SCH (10:03)
[2017-09-25] MEDS: PRENATAL VITAMINS W/ FOLIC ACID TABLET (FP) PO SCH (10:04)
[2017-09-25] MEDS: QUEtiapine FUMARATE 50 MG TABLET PO SCH (21:18)
[2017-09-25] MEDS: THIAMINE HCL 100 MG TABLET (FP) PO SCH (21:18)
[2017-09-26] MEDS ORDERED: METHADONE HCL 40 MG DISPERSABLE TABLET ONE (04:50)
[2017-09-26] MEDS ORDERED: METHADONE HCL 10 MG TABLET ONE (04:50)
[2017-09-26] MEDS: METHADONE 120 MG, METHADONE 20 MG PO SCH (06:28)
[2017-09-26] MEDS: PRENATAL VITAMINS W/ FOLIC ACID TABLET (FP) PO SCH (10:03)
[2017-09-26] MEDS: TAMSULOSIN HCL 0.4 MG CAP.ER.24H (FP) PO SCH (10:03)
[2017-09-26] MEDS: HYDROCHLOROTHIAZIDE 25 MG TABLET (FP) PO SCH (10:03)
[2017-09-26] MEDS: DOCUSATE SODIUM 100 MG CAPSULE (FP) PO SCH (10:03)
[2017-09-26] MEDS: NICOTINE 21 MG/24 HOURS TOPICAL PATCH TD SCH (10:03)
[2017-09-26] MEDS: ASPIRIN COATED 81 MG TABLET.EC PO SCH (10:03)
[2017-09-26] MEDS: ARIPiprazole 10 MG TABLET PO SCH (10:03)
[2017-09-26] MEDS: PARoxetine HCL 20 MG TABLET (FP) PO SCH (10:04)
[2017-09-26] MEDS: QUEtiapine FUMARATE 50 MG TABLET PO SCH (21:27)
[2017-09-26] MEDS: THIAMINE HCL 100 MG TABLET (FP) PO SCH (21:27)
[2017-09-27] MEDS ORDERED: METHADONE HCL 40 MG DISPERSABLE TABLET ONE (02:56)
[2017-09-27] MEDS ORDERED: METHADONE HCL 10 MG TABLET ONE (02:56)
[2017-09-27] MEDS: METHADONE 120 MG, METHADONE 20 MG PO SCH (06:15)
[2017-09-27] MEDS: TAMSULOSIN HCL 0.4 MG CAP.ER.24H (FP) PO SCH (07:41)
[2017-09-27] MEDS: PRENATAL VITAMINS W/ FOLIC ACID TABLET (FP) PO SCH (09:55)
[2017-09-27] MEDS: HYDROCHLOROTHIAZIDE 25 MG TABLET (FP) PO SCH (09:55)
[2017-09-27] MEDS: PARoxetine HCL 20 MG TABLET (FP) PO SCH (09:55)
[2017-09-27] MEDS: ASPIRIN COATED 81 MG TABLET.EC PO SCH (09:55)
[2017-09-27] MEDS: DOCUSATE SODIUM 100 MG CAPSULE (FP) PO SCH (09:55)
[2017-09-27] MEDS: ARIPiprazole 10 MG TABLET PO SCH (09:55)
[2017-09-27] MEDS: NICOTINE 21 MG/24 HOURS TOPICAL PATCH TD SCH (09:56)
[2017-09-27] MEDS: QUEtiapine FUMARATE 50 MG TABLET PO SCH (21:35)
[2017-09-27] MEDS: THIAMINE HCL 100 MG TABLET (FP) PO SCH (21:35)
[2017-09-28] MEDS ORDERED: METHADONE HCL 10 MG TABLET ONE (02:57)
[2017-09-28] MEDS ORDERED: METHADONE HCL 40 MG DISPERSABLE TABLET ONE (02:57)
[2017-09-28] MEDS: METHADONE 120 MG, METHADONE 20 MG PO SCH (06:10)
[2017-09-28] MEDS: TAMSULOSIN HCL 0.4 MG CAP.ER.24H (FP) PO SCH (07:31)
[2017-09-28] MEDS: ARIPiprazole 10 MG TABLET PO SCH (10:14)
[2017-09-28] MEDS: NICOTINE 21 MG/24 HOURS TOPICAL PATCH TD SCH (10:14)
[2017-09-28] MEDS: PRENATAL VITAMINS W/ FOLIC ACID TABLET (FP) PO SCH (10:14)
[2017-09-28] MEDS: ASPIRIN COATED 81 MG TABLET.EC PO SCH (10:14)
[2017-09-28] MEDS: PARoxetine HCL 20 MG TABLET (FP) PO SCH (10:14)
[2017-09-28] MEDS: HYDROCHLOROTHIAZIDE 25 MG TABLET (FP) PO SCH (10:14)
[2017-09-28] MEDS: DOCUSATE SODIUM 100 MG CAPSULE (FP) PO SCH (10:14)
[2017-09-28] MEDS: QUEtiapine FUMARATE 50 MG TABLET PO SCH (21:19)
[2017-09-28] MEDS: THIAMINE HCL 100 MG TABLET (FP) PO SCH (21:19)
[2017-09-29] MEDS ORDERED: METHADONE HCL 10 MG TABLET ONE (04:21)
[2017-09-29] MEDS ORDERED: METHADONE HCL 40 MG DISPERSABLE TABLET ONE (04:22)
[2017-09-29] MEDS: METHADONE 120 MG, METHADONE 20 MG PO SCH (06:11)
[2017-09-29] MEDS: TAMSULOSIN HCL 0.4 MG CAP.ER.24H (FP) PO SCH (08:39)
[2017-09-29] MEDS: ARIPiprazole 10 MG TABLET PO SCH (09:38)
[2017-09-29] MEDS: HYDROCHLOROTHIAZIDE 25 MG TABLET (FP) PO SCH (09:38)
[2017-09-29] MEDS: PARoxetine HCL 20 MG TABLET (FP) PO SCH (09:39)
[2017-09-29] MEDS: PRENATAL VITAMINS W/ FOLIC ACID TABLET (FP) PO SCH (09:39)
[2017-09-29] MEDS: ASPIRIN COATED 81 MG TABLET.EC PO SCH (09:39)
[2017-09-29] MEDS: NICOTINE 21 MG/24 HOURS TOPICAL PATCH TD SCH (09:39)
[2017-09-29] MEDS: DOCUSATE SODIUM 100 MG CAPSULE (FP) PO SCH (09:39)
--- NOTE | 2017-09-29 10:49 | PN ---
Psychiatric Progress Note Vital Signs: Vital Signs Period Temp Pulse Resp BP Sys/[place] Pulse Ox Last 24 Hr 97.6 F 55 18-18 146/71 Date of Session: 09/29/17 Chief Complaint:: Discharge Note HPI: Patient addressing Cocaine Dependence comorbid with Opioid Dependence on Agonist Therapy, Nicotine Dependence, Bipolar Disorder, ADHD, Substance-Induced Sleep Disorder ROS: Type 2 DM, HTN, Hep C Current Medications: Active Medications Generic Name Dose Route Start Last Admin Trade Name Freq PRN Reason Stop Dose Admin Acetaminophen 650 mg 09/03/17 15:46 Tylenol - PO Q4H PRN FEVER Al Hydroxide/Mg Hydroxide 30 ml 09/03/17 15:46 Mylanta Oral Suspension - PO Q6H PRN DYSPEPSIA Aripiprazole 10 mg 09/04/17 11:15 09/29/17 09:38 Abilify PO 10 mg DAILY LEX Administration Aspirin 81 mg 09/04/17 10:00 09/29/17 09:39 Ecotrin - PO 81 mg DAILY LEX Administration Docusate Sodium 100 mg 09/04/17 10:00 09/29/17 09:39 Colace - PO 100 mg DAILY LEX Administration Eucalyptus/Menthol/Phenol/Sorbitol 1 each 09/03/17 15:46 Cepastat Lozenge - MM Q4H PRN SORE THROAT Guaifenesin 10 ml 09/03/17 15:46 Robitussin Dm - PO Q6H PRN COUGH Hydrochlorothiazide 25 mg 09/04/17 10:00 09/29/17 09:38 Hctz - PO 25 mg DAILY LEX Administration Ibuprofen 400 mg 09/03/17 15:46 09/05/17 06:18 Motrin - PO 400 mg Q6H PRN Administration Pain level 4-6 Loperamide HCl 4 mg 09/03/17 15:46 Imodium - PO Q6H PRN DIARRHEA Magnesium Citrate 300 ml 09/03/17 15:46 Citroma - PO Q48H PRN CONSTIPATION Magnesium Hydroxide 30 ml 09/03/17 15:46 Milk Of Magnesia - PO DAILY PRN CONSTIPATION Melatonin 5 mg 09/03/17 22:00 09/10/17 21:17 Melatonin PO 5 mg HS PRN Administration INSOMNIA Metformin HCl 500 mg 09/03/17 16:30 09/29/17 07:19 Glucophage Xr - PO 500 mg BIDAC LEX Administration Methadone HCl 120 mg/ 140 mg 09/26/17 06:00 09/29/17 06:11 Methadone HCl 20 mg PO 10/03/17 05:59 140 mg DAILY@0600 LEX Administration Nicotine 21 mg 09/04/17 10:00 09/29/17 09:39 Nicoderm Patch - TD 21 mg DAILY LEX Administration Nicotine Polacrilex 4 mg 09/03/17 15:46 Nicorette Gum - BC Q2H PRN NICOTINE REPLACEMENT RX Paroxetine HCl 20 mg 09/23/17 10:00 09/29/17 09:39 Paxil - PO 20 mg DAILY LEX Administration Multivit/Folic Acid/Iron 1 tab 09/04/17 10:00 09/29/17 09:39 Vitamins (Sjr) - PO 1 tab DAILY LEX Administration Pseudoephedrine/Triprolidine 1 combo 09/03/17 15:46 Actifed - PO TID PRN NASAL CONGESTION Quetiapine Fumarate 50 mg 09/04/17 22:00 09/28/17 21:19 Seroquel - PO 50 mg HS LEX Administration Tamsulosin HCl 0.4 mg 09/09/17 08:30 09/29/17 08:39 Flomax - PO 0.4 mg DAILY@0830 LEX Administration Thiamine HCl 100 mg 09/03/17 22:00 09/28/17 21:19 Vitamin B1 - PO 100 mg HS LEX Administration Current Side Effect: No Lab tests ordered: Yes Lab tests reviewed: Yes Provider note:: Patient will complete this program on 09/30/17. He has met his treatment goals and will continue to address his issues in outpatient treatment at [facility]. Told bond underwriter that from his participation in this program, he has learned to confront his fears and apply the tools learned on relapse prevention.He responded well to Paxil 20 mg po daily, Abilify 10 mg po HS and Seroquel 50 mg po HS. Scripts for 30 days supply of medications wll be electronically transmitted to [facility] at [address] [place] [id number]. He is stable for discharge on 09/30/17 Total face to face time:: 35 Mental Status Exam - Mental Status Exam Alert and Oriented to: Time, Place, Person Cognitive Function: Fair Patient Appearance: Well Groomed Mood: Hopeful, Euthymic Patient Behavior: Cooperative Speech Pattern: Clear Voice Loudness: Normal Thought Process: Intact, Goal Oriented Thought Disorder: Not Present Hallucinations: Denies Suicidal Ideation: Denies Insight/Judgement: Fair Sleep: Fair Appetite: Good Muscle strength/Tone: Normal Gait/Station: Normal Psychiatric Treatment Plan - Problem List (1) Cocaine dependence Current Visit: No Qualifiers: Substance use status: uncomplicated Qualified Code(s): F14.20 - Cocaine dependence, uncomplicated Comment: REHAB (2) Opioid dependence on agonist therapy Current Visit: Yes (3) Nicotine dependence Current Visit: Yes Qualifiers: Nicotine product type: cigarettes Substance use status: uncomplicated Qualified Code(s): F17.210 - Nicotine dependence, cigarettes, uncomplicated Comment: NICOTINE PATCH AND GUM (4) Bipolar disorder Current Visit: Yes Comment: PSYCHIATRIC EVALUATION (5) ADHD (attention deficit hyperactivity disorder) Current Visit: No (6) Substance-induced sleep disorder Current Visit: Yes (7) Diabetes mellitus type II, controlled, with no complications Current Visit: Yes Qualifiers: Comment: METFORMIN 500 MG BID (8) Hepatitis C Current Visit: Yes Qualifiers: Viral hepatitis chronicity: chronic Hepatic coma status: without hepatic coma Qualified Code(s): B18.2 - Chronic viral hepatitis C Comment: ENCOURAGE SEEKING TREATMENT (9) Hypertension Current Visit: Yes Qualifiers: Hypertension type: essential hypertension Qualified Code(s): I10 - Essential (primary) hypertension Comment: HYDROCHLOROTHIAZIDE Initial treatment plan: Patient will be discharged tomorrow and referred to [facility] for outpatient treatment
[2017-09-29] MEDS: QUEtiapine FUMARATE 50 MG TABLET PO SCH (21:38)
[2017-09-29] MEDS: THIAMINE HCL 100 MG TABLET (FP) PO SCH (21:38)
[2017-09-30] MEDS ORDERED: METHADONE HCL 10 MG TABLET ONE (05:04)
[2017-09-30] MEDS ORDERED: METHADONE HCL 40 MG DISPERSABLE TABLET ONE (05:04)
[2017-09-30] MEDS: METHADONE 120 MG, METHADONE 20 MG PO SCH (06:11)
[2017-09-30 07:11] VITALS: BP 136/84; PULSE 59; TEMP 97.8
== END 2017-09-30 07:00 | disposition home or self-care (01) | DRG 772 ==
LOC: YASAS 11:06 → Y3W 16:34
PROVIDERS: ADMIT Psychiatry & Neurology Psychiatry; ATTEND Psychiatry & Neurology Psychiatry
PROC: HZ42ZZZ Group Counseling for Substance Abuse Treatment, Cognitive-Behavioral (ICD-10-PCS; principal; 2017-09-03)
DX: F14.20 Cocaine dependence, uncomplicated (principal); F11.20 Opioid dependence, uncomplicated; F17.210 Nicotine dependence, cigarettes, uncomplicated; F31.9 Bipolar disorder, unspecified; F90.9 Attention-deficit hyperactivity disorder, unspecified type; F19.282 Other psychoactive substance dependence with psychoactive substance-induced sleep disorder; I10 Essential (primary) hypertension; E11.9 Type 2 diabetes mellitus without complications; B18.2 Chronic viral hepatitis C; N40.0 Benign prostatic hyperplasia without lower urinary tract symptoms
CPT/HCPCS: 36415; 80053; 81003; 81015; 82962; 85027; 86593; 93005; 93010

== ENCOUNTER 2018-10-16 10:02 | Inpatient (IN) | payer OTHER ==
[2018-10-16 11:40] VITALS: BMI 28.8
--- NOTE | 2018-10-16 13:16 | HP ---
CIWA Score Nausea/Vomitin Muscle Tremors: 2 Anxiety: 2 Agitation: 2 Paroxysmal Sweats: 1-Minimal Palms Moist Orientation: 0-Oriented Tacttile Disturbances: 1-Very Mild Itch/Numbness Auditory Disturbances: 1-Very Mild Visual Disturbances: 0-None Headache: 2-Mild CIWA-Ar Total Score: 13 - Admission Criteria OASAS Guidelines: Admission for Medically Managed Detox: Requires at least one of the followin. CIWA greater than 12 2. Seizures within the past 24 hours 3. Delirium tremens within the past 24 hours 4. Hallucinations within the past 24 hours 5. Acute intervention needed for co occurring medical disorder 6. Acute intervention needed for co occurring psychiatric disorder 7. Severe withdrawal that cannot be handled at a lower level of care (continued vomiting, continued diarrhea, abnormal vital signs) requiring intravenous medication and/or fluids 8. Admission ROS S - HPI Chief Complaint: i need help to stop drinking alcohol and cocaine Allergies/Adverse Reactions: Allergies Allergy/AdvReac Type Severity Reaction Status Date / Time No Known Allergies Allergy Verified 10/16/18 11:22 History of Present Illness: this 63 years old mal with alcohol and cocaine dependence,mmtp 35 mgs/day,last medicated today, attending out patient program but fail last detox 03/2011 last rehab 11/2017 [facility] history of hypertension,type 2 dm,hepatitis c nicotine dependence 1/2 pack/day longest sobriety 5 years plan to go back to out patient program after detox - Ebola screening Have you traveled outside of the country in the last 21 days: No (N) Have you had contact with anyone from an Ebola affected area: No Do you have a fever: No - Review of Systems Constitutional: Loss of Appetite, Malaise, Night Sweats, Changes in sleep, Weakness EENT: reports: Tearing, Nose Congestion Respiratory: reports: No Symptoms reported Cardiac: reports: No Symptoms Reported GI: reports: Nausea, Poor Appetite, Abdominal cramping : reports: No Symptoms Reported Musculoskeletal: reports: Back Pain, Muscle Pain Integumentary: reports: Dryness Neuro: reports: Headache, Tremors Endocrine: reports: No Symptoms Reported Hematology: reports: No Symptoms Reported Psychiatric: reports: No Sypmtoms Reported, Judgement Intact, Mood/Affect Appropiate, Orientated x3, other (bipolar disorder) Other Systems: Reviewed and Negative Patient History - Patient Medical History Hx Anemia: No Hx Asthma: No Hx Chronic Obstructive Pulmonary Disease (COPD): No Hx Cancer: No Hx Cardiac Disorders: No Hx Congestive Heart Failure: No Hx Hypertension: Yes (HCTZ) Hx Hypercholesterolemia: No Hx Pacemaker: No HX Cerebrovascular Accident: No Hx Seizures: No Hx Dementia: No Hx Diabetes: Yes (Metformin) Hx Gastrointestinal Disorders: No Hx Liver Disease: No Hx Genitourinary Disorders: Yes (bph) Hx Sexually Transmitted Disorders: No Hx Renal Disease (ESRD): No Hx Thyroid Disease: No Hx Human Immunodeficiency Virus (HIV): No Hx Hepatitis C: Yes (1997- Not on medication and not treated) Hx Depression: Yes (Not on medication) Hx Suicide Attempt: No (Denies suicidal ideation at this time) Hx Bipolar Disorder: Yes Hx Schizophrenia: No Other Medical History: no suicidal,no homicidal - Patient Surgical History Past Surgical History: Yes Hx Neurologic Surgery: No Hx Cataract Extraction: No Hx Cardiac Surgery: No Hx Lung Surgery: No Hx Breast Surgery: No Hx Breast Biopsy: No Hx Abdominal Surgery: No Hx Appendectomy: No Hx Cholecystectomy: No Hx Genitourinary Surgery: No Hx Section: No Hx Orthopedic Surgery: No Other Surgical History: right inguinal hernia repai in 2009 Anesthesia Reaction: No - PPD History Previous Implant?: Yes Documented Results: Negative w/o proof Date: 09/06/17 Results: 0 mm PPD to be Administered?: Yes - Smoking Cessation Smoking history: Current every day smoker Have you smoked in the past 12 months: Yes Aproximately how many cigarettes per day: 10 Hx Chewing Tobacco Use: No Initiated information on smoking cessation: Yes 'Breaking Loose' booklet given: 10/16/18 - Substance & Tx. History Hx Alcohol Use: Yes Hx Substance Use: Yes Substance Use Type: Alcohol, Cocaine Hx Substance Use Treatment: Yes ([facility] 03/2011,rehab 2018) - Substances abused Alcohol Substance route: Oral Frequency: Daily Amount used: 3 of 40 ounces beer/1pint of vodka Age of first use: 32 Date of last use: 10/16/18 Cocaine Substance route: Smoking Frequency: 3-6 times per week Amount used: 100 dollars Age of first use: 37 Date of last use: 10/15/18 Family Disease History - Family Disease History Family History: Denies Family Disease History: Other: Son (HEALTHY), Daughter (HEALTHY) Admission Physical Exam [facility] - Vital Signs Vital Signs: Vital Signs - 24 hr 10/16/18 11:20 Temperature 97.7 F Pulse Rate 59 L Respiratory 18 Rate Blood Pressure 131/88 - Physical General Appearance: Yes: Moderate Distress, Tremorous, Irritable, Sweating, Anxious HEENTM: Yes: Normal ENT Inspection, EPHRAIM, Pharynx Normal Respiratory: Yes: Lungs Clear, Normal Breath Sounds, No Respiratory Distress Neck: Yes: Within Normal Limits, Supple, Trachea in good position Breast: Yes: Within Normal Limits Cardiology: Yes: Within Normal Limits, Regular Rhythm, Regular Rate, S1, S2 Abdominal: Yes: Within Normal Limits, Normal Bowel Sounds, Non Tender, Soft Genitourinary: Yes: Within Normal Limits Back: Yes: Muscle Spasm Musculoskeletal: Yes: Back pain, Muscle Pain Extremities: Yes: Tremors Neurological: Yes: student ministry pastor II-XII NML intact, Fully Oriented, Alert, Motor Strength 5/5 Integumentary: Yes: Dry Lymphatic: Yes: Within Normal Limits - Diagnostic (1) Alcohol dependence with uncomplicated withdrawal Current Visit: Yes Status: Acute (2) BPH (benign prostatic hyperplasia) Current Visit: No Status: Chronic Qualifiers: Lower urinary tract symptom presence: symptoms present (3) Bipolar disorder Current Visit: No Status: Chronic Comment: PSYCHIATRIC EVALUATION (4) Cocaine dependence Current Visit: Yes Status: Chronic Qualifiers: Comment: REHAB (5) Diabetes mellitus type II, controlled, with no complications Current Visit: No Status: Chronic Qualifiers: Comment: METFORMIN 500 MG BID (6) Hepatitis C Current Visit: No Status: Chronic Qualifiers: Comment: ENCOURAGE SEEKING TREATMENT (7) Hypertension Current Visit: No Status: Chronic Qualifiers: Comment: HYDROCHLOROTHIAZIDE (8) Nicotine dependence Current Visit: Yes Status: Chronic Qualifiers: Comment: NICOTINE PATCH AND GUM (9) Opioid dependence on agonist therapy Current Visit: Yes Status: Chronic (10) Syncope Current Visit: Yes Status: Acute Cleared for Admission [facility] - Detox or Rehab [facility] Level of Care: Medically Managed Detox Regimen/Protocol: Librium (patient would like to be on librium) Breathalyzer - Breathalyzer Breathalyzer: 0 Urine Drug Screen - Test Device Lot number: [id number] Expiration date: 06/25/20 - Control Is test valid?: Yes - Results Drug screen NEGATIVE: No Urine drug screen results: ELIS-Cocaine, MTD-Methadone Inpatient Rehab Admission - Rehab Decision to Admit Inpatient rehab admission?: No
[2018-10-16] MEDS ORDERED: chlordiazePOXIDE HCL 25 MG CAPSULE PO PRN (13:26)
[2018-10-16] MEDS ORDERED: IBUPROFEN 400 MG TABLET (FP) PO PRN (13:33)
[2018-10-16] MEDS ORDERED: METHOCARBAMOL 500 MG TABLET PO PRN (13:33)
[2018-10-16] MEDS ORDERED: MENTHOL/PHENOL 1 EACH UD MM PRN (13:33)
[2018-10-16] MEDS ORDERED: MAGNESIUM HYDROX 2400MG/30ML ORAL SUSPENSION 30 ML CUP PO PRN (13:33)
[2018-10-16] MEDS ORDERED: ACETAMINOPHEN 325 MG TABLET (FP) PO PRN ×2 (13:33)
[2018-10-16] MEDS ORDERED: MAG HYDROX/AL HYDROX/SIMETH 30 ML UNIT-DOSE CUP PO PRN (13:33)
[2018-10-16] MEDS ORDERED: MAGNESIUM CITRATE 300 ML BOTTLE PO PRN (13:33)
[2018-10-16] MEDS ORDERED: hydrOXYzine PAMOATE 25 MG CAPSULE (FP) PO PRN (13:33)
[2018-10-16] MEDS ORDERED: BISMUTH SUBSALICYLATE 262 MG/15 ML BTL PO PRN (13:33)
[2018-10-16 15:47] LABS: ALBUMIN 3.8 g/dl (3.4-5.0); BILIRUBIN,TOTAL 0.5 mg/dL (0.2-1); CALCIUM 9.5 mg/dL (8.5-10.1); CREATININE 1.2 mg/dL (0.55-1.3); POTASSIUM 4.3 mmol/L (3.5-5.1); TOT PROT 8.1 g/dl (6.4-8.2)
[2018-10-16 16:04] LABS: HEMATOCRIT 42.1 % (35.4-49); HEMOGLOBIN 13.8 GM/dL (11.7-16.9); MCHC 32.7 g/dl (32.0-35.9); MEAN CELL VOLUME 88.7 fl (80-96); MEAN PLT VOLUME 8.9 fl (7.5-11.1); PLATELET COUNT 302 K/MM3 (134-434); RBC 4.75 M/mm3 (4.00-5.60)
--- NOTE | 2018-10-16 18:11 | CONSULT ---
[facility] Psychiatric Consult - Data Date of interview: 10/16/18 Admission source: [facility] Identifying data: Readmission to [facility] for this 63 y/o AA male self- referred for detoxification (alcohol, cocaine). Examined on . Patient is , a father of three, domiciled, unemployed (retired from the [employer] industry) and supported on SSI benefits. Substance Abuse History: Discussed in this interview. Detailed in current [facility] report as follows : Smoking history: Current every day smoker. Have you smoked in the past 12 months: Yes. Aproximately how many cigarettes per day: 10. Hx Chewing Tobacco Use: No. Initiated information on smoking cessation: Yes. ' Breaking Loose' booklet given: 10/16/18. - Substance & Tx. History. Hx Alcohol Use: Yes. Hx Substance Use: Yes. Substance Use Type: Alcohol, Cocaine. Hx Substance Use Treatment: Yes ([facility] 03/2011,rehab 2018). - Substances abused. Alcohol. Substance route: Oral. Frequency: Daily. Amount used: 3 of 40 ounces beer/1pint of vodka. Age of first use: 32. Date of last use: 10/16/18. Cocaine. Substance route: Smoking. Frequency: 3-6 times per week. Amount used: 100 dollars. Age of first use: 37. Date of last use: 10/15/18 Medical History: Remarkable for diabetes mellitus, hepatitis C, hypertension, benign prostatic hyperplasia and a history of right inguinal herniorraphy. Psychiatric History: Patient admits to a history of one psychiatric hospitalization ([facility]). of brother was the precipitant leading to the first psychiatric meltdown in 2009. Diagnosed with Bipolar Disorder and treated, for a few months, with paxil + abilify + seroquel.Patient is known to [place] [facility] at [facility]. Mr Ortega is currently seeing a psychiatrist at the [facility] in [facility]. He is prescribed abilify + paroxetine. No history of suicide attempts. Patient is on methadone maintenance (35 mg/day). Physical/Sexual Abuse/Trauma History: Patient denies. Additional Comment: Urine drug screen results: ELIS-Cocaine, MTD-Methadone. Noted. Mental Status Exam - Mental Status Exam Alert and Oriented to: Time, Place, Person Cognitive Function: Good Patient Appearance: Well Groomed Mood: Withdrawn Affect: Appropriate, Normal Range Patient Behavior: Fatigued, Appropriate, Cooperative Speech Pattern: Clear, Appropriate Voice Loudness: Normal Thought Process: Goal Oriented Thought Disorder: Not Present Hallucinations: Denies Suicidal Ideation: Denies Homicidal Ideation: Denies Insight/Judgement: Poor Sleep: Poorly, Difficulty falling asleep Appetite: Good Muscle strength/Tone: Normal Gait/Station: Normal Psychiatric Findings - Problem List ([place] 1, 2,3) (1) Alcohol dependence with uncomplicated withdrawal Current Visit: Yes Status: Acute (2) Opioid dependence on agonist therapy Current Visit: Yes Status: Chronic (3) Cocaine dependence Current Visit: Yes Status: Chronic Qualifiers: Comment: REHAB (4) Nicotine dependence Current Visit: Yes Status: Chronic Qualifiers: Comment: NICOTINE PATCH AND GUM (5) Substance induced mood disorder Current Visit: Yes Status: Chronic (6) History of bipolar disorder Current Visit: Yes Status: Chronic (7) Non-compliance Current Visit: Yes Status: Chronic - Initial Treatment Plan Initial Treatment Plan: Psychoeducation. Sleep hygiene. Detoxification. Medications : paxil 10 mg po daily + abilify 10 mg po daily (refills noted in drug utilization review from [facility] on 08/20/18). Side effects/ benefits discussed with the patient. Verbal consent given. AA/NA meetings. Observation.
[2018-10-16] MEDS: chlordiazePOXIDE HCL 25 MG CAPSULE PO SCH (18:54)
[2018-10-16] MEDS: metFORMIN HCL 500 MG TABLET (FP) PO SCH (18:54)
[2018-10-16] MEDS ORDERED: PARoxetine HCL 20 MG TABLET PO SCH (22:00)
[2018-10-16] MEDS ORDERED: QUEtiapine FUMARATE 50 MG TABLET PO SCH (22:00)
[2018-10-17] MEDS: TAMSULOSIN HCL 0.4 MG CAP PO SCH ×2 (00:27→22:19)
[2018-10-17] MEDS: THIAMINE HCL 100 MG TABLET (FP) PO SCH ×2 (00:27→22:19)
[2018-10-17] MEDS: chlordiazePOXIDE HCL 25 MG CAPSULE PO SCH ×5 (00:27→22:19)
[2018-10-17] MEDS ORDERED: METHADONE HCL 5 MG TABLET ONE (05:44)
[2018-10-17] MEDS ORDERED: METHADONE HCL 10 MG TABLET ONE (05:45)
[2018-10-17] MEDS ORDERED: METHADONE HCL 10 MG TABLET PO SCH (06:00)
[2018-10-17] MEDS: METHADONE 30 MG, METHADONE 5 MG PO SCH (07:00)
[2018-10-17] MEDS: metFORMIN HCL 500 MG TABLET (FP) PO SCH ×2 (07:07→17:30)
[2018-10-17] MEDS ORDERED: ESCITALOPRAM OXALATE 10 MG TABLET (FP) PO SCH (10:00)
[2018-10-17] MEDS: PRENATAL VITAMINS W/ FOLIC ACID TABLET (FP) PO SCH (10:50)
[2018-10-17] MEDS: ARIPiprazole 10 MG TABLET PO SCH (10:50)
[2018-10-17] MEDS: ASPIRIN 81 MG CHEWABLE TABLETS PO SCH (10:50)
[2018-10-17] MEDS: HYDROCHLOROTHIAZIDE 25 MG TABLET (FP) PO SCH (10:54)
--- NOTE | 2018-10-17 10:56 | PN ---
S CIWA - CIWA Score Nausea/Vomitin-No Nausea/No Vomiting Muscle Tremors: 3 Anxiety: 2 Agitation: 1-Slight > Activity Paroxysmal Sweats: 3 Orientation: 0-Oriented Tacttile Disturbances: 0-None Auditory Disturbances: 0-None Visual Disturbances: 0-None Headache: 2-Mild CIWA-Ar Total Score: 11 S Progress Note (SOAP) Subjective: c/o sweats, shakes, tremors, anxiety, and headache. Objective: 10/17/18 10:53 Vital Signs 10/17/18 10/17/18 03:30 08:21 Temperature 97.7 F Pulse Rate 52 L Respiratory 18 18 Rate Blood Pressure 136/77 Vital Signs - 24 hr 10/16/18 10/16/18 10/16/18 11:20 14:38 17:42 Temperature 97.7 F 98.1 F 98.1 F Pulse Rate 59 L 53 L 61 Respiratory 18 17 18 Rate Blood Pressure 131/88 152/83 141/75 10/17/18 10/17/18 10/17/18 00:30 03:30 08:21 Temperature 97.7 F Pulse Rate 52 L Respiratory 18 18 18 Rate Blood Pressure 136/77 Lab Results WBC 6.0 K/mm3 (4.0-10.0) 10/16/18 13:20 RBC 4.75 M/mm3 (4.00-5.60) 10/16/18 13:20 Hgb 13.8 GM/dL (11.7-16.9) 10/16/18 13:20 Hct 42.1 % (35.4-49) 10/16/18 13:20 MCV 88.7 fl (80-96) 10/16/18 13:20 MCHC 32.7 g/dl (32.0-35.9) 10/16/18 13:20 RDW 14.0 % (11.9-15.9) 10/16/18 13:20 Plt Count 302 K/MM3 (134-434) 10/16/18 13:20 Sodium 137 mmol/L (136-145) 10/16/18 13:20 Potassium 4.3 mmol/L (3.5-5.1) 10/16/18 13:20 Chloride 103 mmol/L (98-107) 10/16/18 13:20 Carbon Dioxide 31 mmol/L (21-32) 10/16/18 13:20 Anion Gap 4 MMOL/L (8-16) L 10/16/18 13:20 BUN 12 mg/dL (7-18) 10/16/18 13:20 Creatinine 1.2 mg/dL (0.55-1.3) 10/16/18 13:20 Random Glucose 94 mg/dL (74-106) 10/16/18 13:20 Calcium 9.5 mg/dL (8.5-10.1) 10/16/18 13:20 Labs noted. Assessment: 10/17/18 10:54 AOX3, in no respiratory full rom, ambulating in the unit withdrawal symptoms Plan: continue detox increase fluids
[2018-10-17] MEDS: PARoxetine HCL 10 MG TABLET PO SCH (11:31)
--- NOTE | 2018-10-17 15:42 | EKG ---
Test Reason : Blood Pressure : / mmHG Vent. Rate : 049 BPM Atrial Rate : 049 BPM P-R Int : 186 ms QRS Dur : 090 ms QT Int : 478 ms P-R-T Axes : 072 070 071 degrees QTc Int : 431 ms SINUS BRADYCARDIA POSSIBLE LEFT ATRIAL ENLARGEMENT BORDERLINE ECG WHEN COMPARED WITH ECG OF 29-NOV-2017 02:40, NONSPECIFIC T WAVE ABNORMALITY NO LONGER EVIDENT IN ANTERIOR LEADS Confirmed by MD Macho, Babar ([id number]) on 10/17/2018 3:41:30 PM Referred By: Confirmed By:Babar Pritchard MD
[2018-10-17] MEDS: MELATONIN 5 MG TABLETS PO PRN (22:19)
[2018-10-18] MEDS ORDERED: METHADONE HCL 5 MG TABLET ONE (04:49)
[2018-10-18] MEDS ORDERED: METHADONE HCL 10 MG TABLET ONE (04:50)
[2018-10-18] MEDS: chlordiazePOXIDE HCL 25 MG CAPSULE PO SCH ×2 (06:05→10:44)
[2018-10-18] MEDS: METHADONE 30 MG, METHADONE 5 MG PO SCH (06:05)
[2018-10-18] MEDS: metFORMIN HCL 500 MG TABLET (FP) PO SCH ×2 (06:07→17:46)
[2018-10-18] MEDS: PARoxetine HCL 10 MG TABLET PO SCH (10:44)
[2018-10-18] MEDS: ARIPiprazole 10 MG TABLET PO SCH (10:44)
[2018-10-18] MEDS: HYDROCHLOROTHIAZIDE 25 MG TABLET (FP) PO SCH (10:44)
[2018-10-18] MEDS: ASPIRIN 81 MG CHEWABLE TABLETS PO SCH (10:44)
[2018-10-18] MEDS: PRENATAL VITAMINS W/ FOLIC ACID TABLET (FP) PO SCH (10:44)
--- NOTE | 2018-10-18 14:18 | PN ---
S CIWA - CIWA Score Nausea/Vomitin-No Nausea/No Vomiting Muscle Tremors: 3 Anxiety: 2 Agitation: 2 Paroxysmal Sweats: 3 Orientation: 0-Oriented Tacttile Disturbances: 0-None Auditory Disturbances: 0-None Visual Disturbances: 0-None Headache: 0-None Present CIWA-Ar Total Score: 10 BHS Progress Note (SOAP) Subjective: Sweating, stomachache Objective: 10/18/18 14:15 Last Vital Signs Temp Pulse Resp BP Pulse Ox 97.7 F 18 L 73 H 111/76 10/18/18 09:27 10/18/18 09:27 10/18/18 09:27 10/18/18 09:27 Laboratory Tests 10/16/18 10/16/18 10/16/18 13:20 13:20 13:20 WBC 6.0 RBC 4.75 Hgb 13.8 Hct 42.1 MCV 88.7 MCH 29.0 MCHC 32.7 RDW 14.0 Plt Count 302 MPV 8.9 Sodium 137 Potassium 4.3 Chloride 103 Carbon Dioxide 31 Anion Gap 4 L BUN 12 Creatinine 1.2 Est GFR (CKD-EPI)AfAm 75.19 Est GFR (CKD-EPI)NonAf 64.87 POC Glucometer Random Glucose 94 Calcium 9.5 Total Bilirubin 0.5 AST 52 H ALT 57 Alkaline Phosphatase 58 Total Protein 8.1 Albumin 3.8 RPR Titer Nonreactive 10/16/18 10/16/18 10/17/18 13:21 17:02 07:04 WBC RBC Hgb Hct MCV MCH MCHC RDW Plt Count MPV Sodium Potassium Chloride Carbon Dioxide Anion Gap BUN Creatinine Est GFR (CKD-EPI)AfAm Est GFR (CKD-EPI)NonAf POC Glucometer 115 114 130 Random Glucose Calcium Total Bilirubin AST ALT Alkaline Phosphatase Total Protein Albumin RPR Titer 10/17/18 10/18/18 16:36 06:04 WBC RBC Hgb Hct MCV MCH MCHC RDW Plt Count MPV Sodium Potassium Chloride Carbon Dioxide Anion Gap BUN Creatinine Est GFR (CKD-EPI)AfAm Est GFR (CKD-EPI)NonAf POC Glucometer 166 125 Random Glucose Calcium Total Bilirubin AST ALT Alkaline Phosphatase Total Protein Albumin RPR Titer Labs reviewed: elevated glucose Assessment: 10/18/18 14:16 Withdrawal symptoms Hyperglycemia noted Plan: Continue detox Encouraged PO water hydration Hyperglycemia: secondary to DMT2; continue metformin and finger stick glucose
[2018-10-18] MEDS ORDERED: chlordiazePOXIDE HCL 10 MG CAPSULE PO PRN (17:00)
[2018-10-18] MEDS: chlordiazePOXIDE HCL 10 MG CAPSULE PO SCH ×2 (17:46→22:52)
[2018-10-18] MEDS: THIAMINE HCL 100 MG TABLET (FP) PO SCH (22:51)
[2018-10-18] MEDS: TAMSULOSIN HCL 0.4 MG CAP PO SCH (22:51)
[2018-10-18] MEDS: MELATONIN 5 MG TABLETS PO PRN (22:52)
[2018-10-19] MEDS ORDERED: METHADONE HCL 5 MG TABLET ONE (05:30)
[2018-10-19] MEDS ORDERED: METHADONE HCL 10 MG TABLET ONE (05:30)
[2018-10-19] MEDS: METHADONE 30 MG, METHADONE 5 MG PO SCH (06:23)
[2018-10-19] MEDS: metFORMIN HCL 500 MG TABLET (FP) PO SCH (06:24)
[2018-10-19] MEDS: chlordiazePOXIDE HCL 10 MG CAPSULE PO SCH (06:24)
[2018-10-19 07:31] VITALS: BP 121/48; PULSE 81; TEMP 98.2
--- NOTE | 2018-10-19 09:44 | DS ---
[facility] Detox Discharge Summary Admission Date: 10/16/18 - History Present History: Alcohol Dependence - Physical Exam Results Vital Signs: Vital Signs Temperature 98.2 F 10/19/18 07:30 Pulse Rate 81 10/19/18 07:30 Respiratory Rate 18 10/19/18 07:30 Blood Pressure 121/48 L 10/19/18 07:30 O2 Sat by Pulse Oximetry (%) - Treatment Hospital Course: Discharged Condition Good - Medication Discharge Medications: Ambulatory Orders Docusate Sodium [Colace -] 100 mg PO DAILY #90 capsule 01/19/16 Aspirin [ASA -] 81 mg PO DAILY #30 tab.chew 09/29/17 Escitalopram Oxalate [Lexapro -] 5 mg PO DAILY #30 tablet 12/24/17 Hydrochlorothiazide [Hctz -] 25 mg PO DAILY #30 tablet 12/24/17 Tamsulosin HCl [Flomax -] 0.4 mg PO DAILY #30 cap.er.24h 12/24/17 Quetiapine Fumarate [Seroquel -] 50 mg PO HS #30 tablet 03/24/18 Aripiprazole [Abilify -] 10 mg PO DAILY #30 tablet 07/14/18 Quetiapine Fumarate [Seroquel -] 100 mg PO HS #30 tablet 07/14/18 Metformin HCl [Glucophage] 500 mg PO BID 10/16/18 Methadone [Dolophine -] 30 mg PO DAILY 10/16/18 Paroxetine HCl [Paxil -] 20 mg PO HS 10/16/18 - Diagnosis (1) Alcohol dependence with uncomplicated withdrawal Current Visit: Yes Status: Chronic (2) Syncope Current Visit: Yes Status: Acute (3) Cocaine dependence Current Visit: Yes Status: Chronic Qualifiers: Substance use status: uncomplicated (4) History of bipolar disorder Current Visit: Yes Status: Chronic (5) Nicotine dependence Current Visit: Yes Status: Chronic Qualifiers: Nicotine product type: cigarettes Substance use status: uncomplicated Qualified Code(s): F17.210 - Nicotine dependence, cigarettes, uncomplicated (6) Non-compliance Current Visit: Yes Status: Chronic (7) Opioid dependence on agonist therapy Current Visit: Yes Status: Chronic (8) Substance induced mood disorder Current Visit: Yes Status: Chronic (9) ADHD (attention deficit hyperactivity disorder) Current Visit: No Status: Chronic (10) BPH (benign prostatic hyperplasia) Current Visit: No Status: Chronic Qualifiers: Lower urinary tract symptom presence: symptoms present (11) Bipolar disorder Current Visit: No Status: Chronic (12) Diabetes mellitus type II, controlled, with no complications Current Visit: No Status: Chronic Qualifiers: (13) Hepatitis C Current Visit: No Status: Chronic Qualifiers: (14) Hypertension Current Visit: No Status: Chronic Qualifiers: (15) Substance-induced sleep disorder Current Visit: No Status: Chronic - AMA Did Patient Leave Against Medical Advice: Yes (going home.)
[2018-10-19] MEDS ORDERED: chlordiazePOXIDE HCL 10 MG CAPSULE PO SCH (17:00)
== END 2018-10-19 09:47 | disposition left against medical advice (07) | DRG 770 ==
LOC: YASAS 10:02 → Y6N 13:30
PROVIDERS: ADMIT Surgery; ATTEND Surgery
PROC: HZ2ZZZZ Detoxification Services for Substance Abuse Treatment (ICD-10-PCS; principal; 2018-10-16)
DX: F10.230 Alcohol dependence with withdrawal, uncomplicated (principal); F14.20 Cocaine dependence, uncomplicated; F11.20 Opioid dependence, uncomplicated; F17.210 Nicotine dependence, cigarettes, uncomplicated; F19.24 Other psychoactive substance dependence with psychoactive substance-induced mood disorder; F19.282 Other psychoactive substance dependence with psychoactive substance-induced sleep disorder; F31.9 Bipolar disorder, unspecified; F90.9 Attention-deficit hyperactivity disorder, unspecified type; R55 Syncope and collapse; I10 Essential (primary) hypertension; E11.9 Type 2 diabetes mellitus without complications; Z79.84 Long term (current) use of oral hypoglycemic drugs; B18.2 Chronic viral hepatitis C; N40.0 Benign prostatic hyperplasia without lower urinary tract symptoms; Z91.19 Patient's noncompliance with other medical treatment and regimen
CPT/HCPCS: 36415; 80053; 82962; 85027; 86593; 93005; 93010

== ENCOUNTER 2021-12-19 18:00 | Inpatient (IN) | payer OTHER ==
[2021-12-19] MEDS ORDERED: MAGNESIUM HYDROX 2400MG/30ML ORAL SUSPENSION 30 ML CUP PO PRN (22:15)
[2021-12-19] MEDS ORDERED: MAG HYDROX/AL HYDROX/SIMETH 30 ML UNIT-DOSE CUP PO PRN (22:15)
[2021-12-19] MEDS ORDERED: ACETAMINOPHEN 325 MG TABLET (FP) PO PRN ×2 (22:15)
[2021-12-19] MEDS ORDERED: DICYCLOMINE HCL 10 MG CAPSULE PO PRN (22:15)
[2021-12-19] MEDS ORDERED: LOPERAMIDE HCL 2 MG CAPSULE PO PRN (22:15)
[2021-12-19] MEDS ORDERED: guaiFENesin 200 MG/10 ML 10 ML UNIT-DOSE CUPS PO PRN (22:15)
[2021-12-19] MEDS ORDERED: ONDANSETRON *ODT* 4 MG TABLET SL PRN (22:15)
[2021-12-19] MEDS ORDERED: BENZOCAINE/MENTHOL (CHLORASEPTIC ) LOZENGE MM PRN (22:15)
[2021-12-19] MEDS ORDERED: BISMUTH SUBSALICYLATE 524 MG/30 ML PO PRN (22:15)
[2021-12-19] MEDS ORDERED: NICOTINE POLACRILEX 2 MG GUM BUC PRN (22:15)
[2021-12-19] MEDS ORDERED: MAGNESIUM CITRATE 300 ML BOTTLE PO PRN (22:15)
[2021-12-19] MEDS ORDERED: IBUPROFEN 600 MG TABLET (FP) PO PRN (22:15)
[2021-12-19] MEDS ORDERED: IBUPROFEN 400 MG TABLET (FP) PO PRN (22:15)
[2021-12-19] MEDS ORDERED: P-EPHED 60MG/TRIPROLIDI 2.5MG TABLET PO PRN (22:15)
[2021-12-19 22:59] VITALS: BMI 25.7
[2021-12-20] MEDS ORDERED: methaDONE HCL 10 MG TABLET PO SCH (09:00)
[2021-12-20] MEDS ORDERED: diazePAM 5 MG TABLET PO PRN (09:45)
[2021-12-20] MEDS ORDERED: methaDONE HCL 40 MG DISPERSABLE TABLET ONE (10:03)
[2021-12-20] MEDS ORDERED: methaDONE HCL 10 MG TABLET ONE (10:03)
[2021-12-20] MEDS: PRENATAL VITAMINS W/ FOLIC ACID TABLET (FP) PO SCH (10:15)
[2021-12-20] MEDS: methaDONE 40 MG, methaDONE 30 MG PO SCH (10:15)
[2021-12-20] MEDS: diazePAM 5 MG TABLET PO SCH ×3 (10:15→22:38)
[2021-12-20 10:28] LABS: HEMATOCRIT 41.1 % (35.4-49); HEMOGLOBIN 13.4 GM/dL (11.7-16.9); MCH 28.7 pg (25.7-33.7); MCHC 32.7 g/dl (32.0-35.9); MEAN CELL VOLUME 87.7 fl (80-96); MEAN PLT VOLUME 9.2 fl (7.5-11.1); PLATELET COUNT 273 10^3/uL (134-434); RBC 4.69 M/mm3 (4.00-5.60); RDW 13.7 % (11.9-15.9); WHITE BLOOD COUNT 7.2 K/mm3 (4.0-10.0)
[2021-12-20 10:57] LABS: ALBUMIN 3.5 g/dl (3.4-5.0); BLOOD UREA NITROGEN 17.3 mg/dL (7-18); CALCIUM 9.3 mg/dL (8.5-10.1)
[2021-12-20 11:00] LABS: CREATININE 1.1 mg/dL (0.55-1.3)
[2021-12-20 11:02] LABS: TOT PROT 6.8 g/dl (6.4-8.2)
[2021-12-20] MEDS: NICOTINE 14 MG/24 HOURS TOPICAL PATCH TD SCH (11:26)
[2021-12-20] MEDS: THIAMINE HCL 100 MG TABLET (FP) PO SCH (22:37)
[2021-12-20] MEDS: METHOCARBAMOL 500 MG TABLET PO PRN (22:37)
[2021-12-20] MEDS: MELATONIN 5 MG TABLETS PO SCH (22:37)
[2021-12-21] MEDS ORDERED: methaDONE HCL 40 MG DISPERSABLE TABLET ONE (04:06)
[2021-12-21] MEDS ORDERED: methaDONE HCL 10 MG TABLET ONE (04:06)
[2021-12-21] MEDS: diazePAM 5 MG TABLET PO SCH ×4 (05:48→22:35)
[2021-12-21] MEDS: methaDONE 40 MG, methaDONE 30 MG PO SCH (05:48)
[2021-12-21] MEDS: NICOTINE 14 MG/24 HOURS TOPICAL PATCH TD SCH (10:11)
[2021-12-21] MEDS: PRENATAL VITAMINS W/ FOLIC ACID TABLET (FP) PO SCH (10:11)
[2021-12-21] MEDS ORDERED: methaDONE 40 MG, methaDONE 30 MG PO SCH (14:00)
[2021-12-21] MEDS ORDERED: methaDONE HCL 10 MG TABLET PO SCH (14:00)
[2021-12-21] MEDS: TAMSULOSIN HCL 0.4 MG CAP PO SCH (15:03)
[2021-12-21] MEDS: metFORMIN HCL 500 MG TABLET (FP) PO SCH ×2 (15:03→17:00)
[2021-12-21] MEDS: DOCUSATE SODIUM 100 MG CAPSULE (FP) PO SCH (15:04)
[2021-12-21] MEDS: HYDROCHLOROTHIAZIDE 25 MG TABLET (FP) PO SCH (15:04)
[2021-12-21] MEDS: METHOCARBAMOL 500 MG TABLET PO PRN (18:34)
[2021-12-21] MEDS: MELATONIN 5 MG TABLETS PO SCH (22:34)
[2021-12-21] MEDS: THIAMINE HCL 100 MG TABLET (FP) PO SCH (22:34)
[2021-12-22] MEDS ORDERED: methaDONE HCL 40 MG DISPERSABLE TABLET ONE (04:29)
[2021-12-22] MEDS ORDERED: methaDONE HCL 10 MG TABLET ONE (04:29)
[2021-12-22] MEDS: diazePAM 5 MG TABLET PO SCH ×3 (06:42→22:56)
[2021-12-22] MEDS: metFORMIN HCL 500 MG TABLET (FP) PO SCH ×2 (06:42→17:21)
[2021-12-22] MEDS: methaDONE 40 MG, methaDONE 30 MG PO SCH (06:43)
[2021-12-22] MEDS: DOCUSATE SODIUM 100 MG CAPSULE (FP) PO SCH (10:24)
[2021-12-22] MEDS: HYDROCHLOROTHIAZIDE 25 MG TABLET (FP) PO SCH (10:24)
[2021-12-22] MEDS: TAMSULOSIN HCL 0.4 MG CAP PO SCH (10:25)
[2021-12-22] MEDS: ASPIRIN 81 MG CHEWABLE TABLETS PO SCH (10:25)
[2021-12-22] MEDS: NICOTINE 14 MG/24 HOURS TOPICAL PATCH TD SCH (10:26)
[2021-12-22] MEDS: PRENATAL VITAMINS W/ FOLIC ACID TABLET (FP) PO SCH (10:26)
[2021-12-22] MEDS: THIAMINE HCL 100 MG TABLET (FP) PO SCH (22:56)
[2021-12-22] MEDS: MELATONIN 5 MG TABLETS PO SCH (22:56)
[2021-12-23] MEDS ORDERED: methaDONE HCL 10 MG TABLET ONE (04:22)
[2021-12-23] MEDS ORDERED: methaDONE HCL 40 MG DISPERSABLE TABLET ONE (04:22)
[2021-12-23] MEDS: methaDONE 40 MG, methaDONE 30 MG PO SCH (06:20)
[2021-12-23] MEDS: diazePAM 5 MG TABLET PO SCH ×2 (06:40→17:57)
[2021-12-23] MEDS: metFORMIN HCL 500 MG TABLET (FP) PO SCH ×2 (07:10→17:57)
[2021-12-23] MEDS: PRENATAL VITAMINS W/ FOLIC ACID TABLET (FP) PO SCH (10:25)
[2021-12-23] MEDS: HYDROCHLOROTHIAZIDE 25 MG TABLET (FP) PO SCH (10:25)
[2021-12-23] MEDS: DOCUSATE SODIUM 100 MG CAPSULE (FP) PO SCH (10:25)
[2021-12-23] MEDS: METHOCARBAMOL 500 MG TABLET PO PRN (10:25)
[2021-12-23] MEDS: ASPIRIN 81 MG CHEWABLE TABLETS PO SCH (10:25)
[2021-12-23] MEDS: TAMSULOSIN HCL 0.4 MG CAP PO SCH (10:25)
[2021-12-23] MEDS: NICOTINE 14 MG/24 HOURS TOPICAL PATCH TD SCH (10:26)
[2021-12-23] MEDS: MELATONIN 5 MG TABLETS PO SCH (22:23)
[2021-12-23] MEDS: THIAMINE HCL 100 MG TABLET (FP) PO SCH (22:24)
[2021-12-24] MEDS ORDERED: methaDONE HCL 10 MG TABLET ONE (03:44)
[2021-12-24] MEDS ORDERED: methaDONE HCL 40 MG DISPERSABLE TABLET ONE (03:44)
[2021-12-24] MEDS: methaDONE 40 MG, methaDONE 30 MG PO SCH (05:32)
[2021-12-24 05:48] VITALS: BP 123/65; PULSE 55; RESP 16; TEMP 96.9
[2021-12-24] MEDS ORDERED: diazePAM 5 MG TABLET PO ONE (06:00)
[2021-12-24] MEDS: metFORMIN HCL 500 MG TABLET (FP) PO SCH (06:08)
== END 2021-12-24 08:55 | disposition home or self-care (01) | DRG 773 ==
LOC: YASAS 18:00 → Y6N 12-20 10:23
PROVIDERS: ADMIT Allergy & Immunology; ATTEND Surgery
PROC: HZ2ZZZZ Detoxification Services for Substance Abuse Treatment (ICD-10-PCS; principal; 2021-12-20)
DX: F10.230 Alcohol dependence with withdrawal, uncomplicated (principal); F11.20 Opioid dependence, uncomplicated; F14.20 Cocaine dependence, uncomplicated; F17.213 Nicotine dependence, cigarettes, with withdrawal; F41.9 Anxiety disorder, unspecified; F32.A Depression, unspecified; F19.24 Other psychoactive substance dependence with psychoactive substance-induced mood disorder; F19.282 Other psychoactive substance dependence with psychoactive substance-induced sleep disorder; I10 Essential (primary) hypertension; E11.9 Type 2 diabetes mellitus without complications; N40.0 Benign prostatic hyperplasia without lower urinary tract symptoms; B18.2 Chronic viral hepatitis C; R00.1 Bradycardia, unspecified; Z91.14 Patient's other noncompliance with medication regimen; Z79.84 Long term (current) use of oral hypoglycemic drugs; Z86.59 Personal history of other mental and behavioral disorders; Z91.51 Personal history of suicidal behavior
CPT/HCPCS: 36415; 80053; 82962; 85027; 86780; 87811; 93005; 93010; C9803-CS; U0003; U0005